=== PATIENT | male | born 1950 | race Caucasian/White ===

== ENCOUNTER 2017-05-28 07:12 | Day surgery (SDC) | payer MEDICARE, OTHER ==
[~2017-05-28] VITALS: Ht 185.4 cm; Wt 85.5 kg
[2017-05-28] VITALS (20 sets, daily range): BP systolic 139–192; BP diastolic 77–99
[~2017-05-28 07:12] MED LIST: ACHD5005 PO; ALBU2.5V4 IN; AMIN30LI25 JT; ASPI-983 PO; ASPI-999 PO; HYDR-753 PO; HYDR-757 PO; LANS15CA3 JT; LEVO500T69 JT; LISI10TA2 PO; LORA0.5T PO; LORA0.5T34 GT; LORA2ORA2 JT; LOSA1TAB23 PO; METO-352 PO; MTP50T JT; NAPR-1033 PO; OMEP20CA12 PO; OMEP2SUS JT; OXYC5SOL13 JT; POT473SP TP; PRAV40TA PO; SENNA JT; SIMV10TA3 PO; TIOT18CA IH; VENL150T PO; WATER FLUSH JT; [UNRECOGNIZED DRUG - CODE] JT; [UNRECOGNIZED DRUG - CODE] JT
--- OUTSIDE RECORDS SUMMARY | 2017-05-28 07:15 | XMS REPORT | Continuity of Care Document ---
Author Author [employer] Organization [facility] Address Unknown Phone Unavailable Care Team Providers Care Interface Control Officer Name Role Phone [employer] Unavailable Unavailable Problems Medications Allergies, Adverse Reactions, Alerts Immunizations Results Vital Signs Encounters Procedures Plan of Care Social History Assessment and Plan Family History Value Date Source Advance Directives Order Name Results Value Date Source
--- OUTSIDE RECORDS SUMMARY | 2017-05-28 07:16 | XMS REPORT | Continuity of Care Document ---
Author Author [facility] Organization [facility] Address Unknown Phone Unavailable Allergies Active Description Code Type Severity Reaction Onset Reported/Identified Relationship to Patient Clinical Status Yes meperidine [id number] Drug Allergy Unknown N/A 12/30/2006 Medications There is no data. Problems Date Dx Coded Attending Type Code Diagnosis Diagnosed By 09/18/2013 MILLER ANTHONY MD Ot 211.3 BENIGN NEOPLASM LG BOWEL 09/18/2013 MILLER ANTHONY MD Ot 305.1 TOBACCO USE DISORDER 09/18/2013 MILLER ANTHONY MD Ot 530.10 ESOPHAGITIS NOS 09/18/2013 MILLER ANTHONY MD Ot 553.3 DIAPHRAGMATIC HERNIA 09/18/2013 MILLER ANTHONY MD Ot 600.00 HYPERTROPHY (BENIGN) OF PROSTATE W/O URI 09/18/2013 MILLER ANTHONY MD Ot V76.51 SCREEN MAL NEOP-COLON 02/27/2014 MILLER ANTHONY MD Ot 038.9 SEPTICEMIA NOS 02/27/2014 MILLER ANTHONY MD Ot 293.0 DELIRIUM DUE TO CONDITIONS CLASSIFIED EL 02/27/2014 MILLER ANTHONY MD Ot 305.1 TOBACCO USE DISORDER 02/27/2014 MILLER ANTHONY MD Ot 427.31 ATRIAL FIBRILLATION 02/27/2014 MILLER ANTHONY MD Ot 496 CHR AIRWAY OBSTRUCT NEC 02/27/2014 MILLER ANTHONY MD Ot 510.9 EMPYEMA W/O FISTULA 02/27/2014 MILLER ANTHONY MD Ot 693.0 DRUG DERMATITIS NOS 02/27/2014 MILLER ANHTONY MD Ot 995.91 SEPSIS 02/27/2014 MILLER ANTHONY MD Ot E942.0 ADV EFF CARD RHYTH REGUL 02/27/2014 MILLER ANTHONY MD Ot V10.03 HX-ESOPHAGEAL MALIGNANCY 02/27/2014 MILLER ANTHONY MD Ot V10.11 HX-BRONCHOGENIC MALIGNAN 05/11/2015 MILLER ANTHONY MD Ot C34.31 05/11/2015 MILLER ANTHONY MD, Ot Z08 05/11/2015 MILLER ANTHONY MD Ot Z90.2 12/19/2015 MILLER ANTHONY MD Ot R63.4 ABNORMAL WEIGHT LOSS 12/19/2015 MILLER ANTHONY MD Ot Z85.01 PERSONAL HISTORY OF MALIGNANT NEOPLASM O 12/19/2015 MILLER ANTHONY MD Ot R63.4 ABNORMAL WEIGHT LOSS 12/19/2015 MILLER ANTHONY MD Ot Z85.01 PERSONAL HISTORY OF MALIGNANT NEOPLASM O 12/21/2015 MILLER ANTHONY MD Ot R63.4 ABNORMAL WEIGHT LOSS 12/21/2015 MILLER ANTHONY MD Ot Z85.01 PERSONAL HISTORY OF MALIGNANT NEOPLASM O 12/27/2015 VIVIANE ROEC, ALI FACP CCDS Ot I10 ESSENTIAL (PRIMARY) HYPERTENSION 12/27/2015 VIVIANE ROEC, ALI FACP CCDS Ot I49.5 SICK SINUS SYNDROME 12/27/2015 VIVIANE ROEC, ALI FACP CCDS Ot R06.02 SHORTNESS OF BREATH 12/27/2015 VIVIANE JOHN FACC, ALI FACP CCDS Ot Z85.01 PERSONAL HISTORY OF MALIGNANT NEOPLASM O 12/27/2015 VIVIANE ROEC, ALI FACP CCDS Ot I10 ESSENTIAL (PRIMARY) HYPERTENSION 12/27/2015 VIVIANE ROEC, ALI FACP CCDS Ot I49.5 SICK SINUS SYNDROME 12/27/2015 VIVIANE JOHN FACC, ALI FACP CCDS Ot R06.02 SHORTNESS OF BREATH 12/27/2015 VIVIANE ROEC, ALI FACP CCDS Ot Z85.01 PERSONAL HISTORY OF MALIGNANT NEOPLASM O 12/28/2015 VIVIANE JOHN FACC, ALI FACP CCDS Ot I10 ESSENTIAL (PRIMARY) HYPERTENSION 12/28/2015 VIVIANE JOHN FACC, ALI FACP CCDS Ot I49.5 SICK SINUS SYNDROME 12/28/2015 VIVIANE ROEC, ALI FACP CCDS Ot R06.02 SHORTNESS OF BREATH 12/28/2015 VIVIANE JOHN FACC, ALI FACP CCDS Ot Z85.01 PERSONAL HISTORY OF MALIGNANT NEOPLASM O 12/30/2015 VVIIANE JOHN FACC, ALI FACP CCDS Ot I10 ESSENTIAL (PRIMARY) HYPERTENSION 12/30/2015 VIVIANE ROEC, ALI FACP CCDS Ot I49.5 SICK SINUS SYNDROME 12/30/2015 VIVIANE JOHN FACC, ALI FACP CCDS Ot R06.02 SHORTNESS OF BREATH 12/30/2015 VIVIANE JOHN FAC, ALI FACP CCDS Ot Z85.01 PERSONAL HISTORY OF MALIGNANT NEOPLASM O 01/06/2016 MILLER ANTHONY MD Ot R63.4 ABNORMAL WEIGHT LOSS 01/06/2016 MILLER ANTHONY MD Ot Z85.01 PERSONAL HISTORY OF MALIGNANT NEOPLASM O 01/11/2016 VIVIANE JOHN FAC, ALI FACP CCDS Ot I10 ESSENTIAL (PRIMARY) HYPERTENSION 01/11/2016 VIVIANE JOHN FAC, ALI FACP CCDS Ot I49.5 SICK SINUS SYNDROME 01/11/2016 VIVIANE JOHN FACC, ALI FACP CCDS Ot R06.02 SHORTNESS OF BREATH 01/11/2016 VIVIANE JOHN FAC, ALI FACP CCDS Ot Z85.01 PERSONAL HISTORY OF MALIGNANT NEOPLASM O 01/20/2016 VIVIANE JOHN FACC, ALI FACP CCDS Ot I10 ESSENTIAL (PRIMARY) HYPERTENSION 01/20/2016 VIVIANE JOHN FAC, ALI FACP CCDS Ot I49.5 SICK SINUS SYNDROME 01/20/2016 VIVIANE [facility], ALI FACP CCDS Ot R06.02 SHORTNESS OF BREATH 01/20/2016 VIVIANE JOHN FAC, ALI FACP CCDS Ot Z85.01 PERSONAL HISTORY OF MALIGNANT NEOPLASM O 01/25/2016 Ot 682.5 01/25/2016 Ot 721.3 01/25/2016 Ot 305.1 TOBACCO USE DISORDER 01/25/2016 Ot 786.52 PAINFUL RESPIRATION 01/25/2016 Ot 780.4 DIZZINESS AND GIDDINESS 01/25/2016 Ot 780.8 GENERALIZED HYPERHIDROSIS 01/25/2016 Ot 786.09 RESPIRATORY ABNORM NEC 01/25/2016 Ot 787.02 NAUSEA ALONE 01/25/2016 Ot 780.2 SYNCOPE AND COLLAPSE 01/25/2016 Ot 780.2 SYNCOPE AND COLLAPSE 01/25/2016 Ot 305.1 TOBACCO USE DISORDER 01/25/2016 Ot 786.30 HEMOPTYSIS, UNSPECIFIED 01/25/2016 Ot 786.05 SHORTNESS OF BREATH 01/25/2016 Ot 786.05 SHORTNESS OF BREATH 01/25/2016 Ot 682.3 CELLULITIS OF ARM 01/25/2016 MILLER ANTHONY MD Ot V72.84 EXAM PRE-OPERATIVE NOS 01/25/2016 MILLER ANTHONY MD Ot 150.9 MAL JUDI ESOPHAGUS NOS 01/25/2016 RAJ JOHN, MILLER Cruz Ot 162.9 MAL JUDI BRONCH/LUNG NOS 01/25/2016 MILLER ANTHONY MD Ot 150.9 MAL JUDI ESOPHAGUS NOS 01/25/2016 MILLER ANTHONY MD Ot 162.9 MAL JUDI BRONCH/LUNG NOS 01/25/2016 MILLER ANTHONY MD Ot 285.9 ANEMIA NOS 01/25/2016 RAJ JOHN, MILLER Cruz Ot 486 PNEUMONIA, ORGANISM NOS 01/25/2016 MILLER ANTHONY MD Ot C34.31 MALIGNANT NEOPLASM OF LOWER LOBE, RIGHT 01/25/2016 MILLER ANTHONY MD Ot Z08 ENCNTR FOR FOLLOW-UP EXAM AFTER TRTMT FO 01/25/2016 MILLER ANTHONY MD Ot Z90.2 ACQUIRED ABSENCE OF LUNG [PART OF] 01/25/2016 VIVIANE JOHN FACC, ALI FACP CCDS Ot I10 ESSENTIAL (PRIMARY) HYPERTENSION 01/25/2016 VIVIANE ROEC, ALI FACP CCDS Ot I49.5 SICK SINUS SYNDROME 01/25/2016 VIVIANE JOHN FACC, ALI FACP CCDS Ot R06.02 SHORTNESS OF BREATH 01/25/2016 VIVIANE JOHN FACC, ALI FACP CCDS Ot Z85.01 PERSONAL HISTORY OF MALIGNANT NEOPLASM O 01/25/2016 VIVIANE ROEC, ALI FACP CCDS Ot I10 ESSENTIAL (PRIMARY) HYPERTENSION 01/25/2016 VIVIANE ROEC, ALI FACP CCDS Ot I49.5 SICK SINUS SYNDROME 01/25/2016 VIVIANE ROEC, ALI FACP CCDS Ot R06.02 SHORTNESS OF BREATH 01/25/2016 VIVIANE ROEC, ALI FACP CCDS Ot Z85.01 PERSONAL HISTORY OF MALIGNANT NEOPLASM O 01/25/2016 MILLER ANTHONY MD Ot R63.4 ABNORMAL WEIGHT LOSS 01/25/2016 MILLER ANTHONY MD Ot Z85.01 PERSONAL HISTORY OF MALIGNANT NEOPLASM O 01/31/2016 VIVIANE ROEC, ALI FACP CCDS Ot I10 ESSENTIAL (PRIMARY) HYPERTENSION 01/31/2016 VIVIANE ROEC, ALI FACP CCDS Ot I25.10 ATHSCL HEART DISEASE OF [place] CORONARY 01/31/2016 VIVIANE JOHN FACC, ALI FACP CCDS Ot I42.0 DILATED CARDIOMYOPATHY 01/31/2016 VIVIANE ROE, ALI FACP CCDS Ot K21.9 GASTRO-ESOPHAGEAL REFLUX DISEASE WITHOUT 01/31/2016 VIVIANE JOHN FACC, ALI FACP CCDS Ot R00.1 BRADYCARDIA, UNSPECIFIED 01/31/2016 VIVIANE JOHN FACC, ALI FACP CCDS Ot Z72.0 TOBACCO USE 01/31/2016 VIVIANE JOHN FACC, ALI FACP CCDS Ot Z79.899 OTHER [facility] (CURRENT) DRUG THERAPY 01/31/2016 [facility], [facility]I FACP CCDS Ot Z90.2 ACQUIRED ABSENCE OF LUNG [PART OF] 01/31/2016 VIVIANE JOHN FACC, ALI FACP CCDS Ot Z95.0 PRESENCE OF CARDIAC PACEMAKER 02/07/2016 VIVIANE JOHN FACC, ALI FACP CCDS Ot I10 ESSENTIAL (PRIMARY) HYPERTENSION 02/07/2016 VIVIANE ROEC, ALI FACP CCDS Ot I25.10 ATHSCL HEART DISEASE OF [place] CORONARY 02/07/2016 VIVIANE [facility], ALI FACP CCDS Ot I42.0 DILATED CARDIOMYOPATHY 02/07/2016 VIVIANE [facility], ALI FACP CCDS Ot K21.9 GASTRO-ESOPHAGEAL REFLUX DISEASE WITHOUT 02/07/2016 VIVIANE [facility], ALI FACP CCDS Ot R00.1 BRADYCARDIA, UNSPECIFIED 02/07/2016 VIVIANE ROE, ALI FACP CCDS Ot Z72.0 TOBACCO USE 02/07/2016 VIVIANE ROE, ALI FACP CCDS Ot Z79.899 OTHER ARCHITECT MARINE (CURRENT) DRUG THERAPY 02/07/2016 VIVIANE ROE, ALI FACP CCDS Ot Z90.2 ACQUIRED ABSENCE OF LUNG [PART OF] 02/07/2016 VIVIANE ROE, ALI FACP CCDS Ot Z95.0 PRESENCE OF CARDIAC PACEMAKER 02/08/2016 MILLER ANTHONY MD Ot C34.31 MALIGNANT NEOPLASM OF LOWER LOBE, RIGHT 02/08/2016 MILLER ANTHONY MD Ot Z08 ENCNTR FOR FOLLOW-UP EXAM AFTER TRTMT FO 02/08/2016 MILLER ANTHONY MD Ot Z90.2 ACQUIRED ABSENCE OF LUNG [PART OF] 02/08/2016 VIVIANE JOHN FACC, ALI FACP CCDS Ot I10 ESSENTIAL (PRIMARY) HYPERTENSION 02/08/2016 VIVIANE JOHN FACC, ALI FACP CCDS Ot I49.5 SICK SINUS SYNDROME 02/08/2016 VIVIANE JOHN FAC, ALI FACP CCDS Ot R06.02 SHORTNESS OF BREATH 02/08/2016 VIVIANE [facility], ALI FACP CCDS Ot Z85.01 PERSONAL HISTORY OF MALIGNANT NEOPLASM O 02/08/2016 VIVIANE JOHN FAC, ALI FACP CCDS Ot I10 ESSENTIAL (PRIMARY) HYPERTENSION 02/08/2016 VIVIANE JOHN FAC, ALI FACP CCDS Ot I49.5 SICK SINUS SYNDROME 02/08/2016 VIVIANE [facility], ALI FACP CCDS Ot R06.02 SHORTNESS OF BREATH 02/08/2016 VIVIANE JOHN FAC, ALI FACP CCDS Ot Z85.01 PERSONAL HISTORY OF MALIGNANT NEOPLASM O 02/08/2016 RAJ JOHN, MILLER Cruz Ot R63.4 ABNORMAL WEIGHT LOSS 02/08/2016 MILLER ANTHONY MD Ot Z85.01 PERSONAL HISTORY OF MALIGNANT NEOPLASM O 05/27/2017 RAJ JOHN, MILLER Cruz Ot V72.84 EXAM PRE-OPERATIVE NOS 05/27/2017 RAJ JOHN, MILLER Cruz Ot 150.9 MAL JUDI ESOPHAGUS NOS 05/27/2017 MILLER ANTHONY MD Ot 162.9 MAL JUDI BRONCH/LUNG NOS 05/27/2017 MILLER ANTHONY MD Ot 150.9 MAL JUDI ESOPHAGUS NOS 05/27/2017 MILLER ANTHONY MD Ot 162.9 MAL JUDI BRONCH/LUNG NOS 05/27/2017 MILLER ANTHONY MD Ot 285.9 ANEMIA NOS 05/27/2017 MILLER ANTHONY MD Ot 486 PNEUMONIA, ORGANISM NOS Procedures There is no data. Results Test Result Range Automated blood complete blood count (hemogram) panel - 01/31/16 11:16 Blood leukocytes automated count (number/volume) 7.0 10*3/uL 4.3-11.0 Blood erythrocytes automated count (number/volume) 4.83 10*6/uL 4.35-5.85 Venous blood hemoglobin measurement (mass/volume) 15.2 g/dL 13.3-17.7 Blood hematocrit (volume fraction) 44 % 40-54 Automated erythrocyte mean corpuscular volume 92 [foz_us] 80-99 Automated erythrocyte mean corpuscular hemoglobin (mass per erythrocyte) 32 pg 25-34 Automated erythrocyte mean corpuscular hemoglobin concentration measurement ( mass/volume) 34 g/dL 32-36 Automated erythrocyte distribution width ratio 14.7 % 10.0-14.5 Automated blood platelet count (count/volume) 253 10*3/uL 130-400 Automated blood platelet mean volume measurement 10.8 [foz_us] 7.4-10.4 PT panel in platelet poor plasma by coagulation assay - 01/31/16 11:16 Prothrombin time (PT) in platelet poor plasma by coagulation assay 12.6 s 12.2-14.7 INR in platelet poor plasma or blood by coagulation assay 1.0 0.8-1.4 Activated partial thromboplastin time (aPTT) in platelet poor plasma bycoagulation assay - 01/31/16 11:16 Activated partial thromboplastin time (aPTT) in platelet poor plasma bycoagulation assay 25 s 24-35 Comprehensive metabolic panel - 01/31/16 11:16 Serum or plasma sodium measurement (moles/volume) 138 mmol/L 135-145 Serum or plasma potassium measurement (moles/volume) 4.0 mmol/L 3.6-5.0 Serum or plasma chloride measurement (moles/volume) 103 mmol/L 98-107 Carbon dioxide 28 mmol/L 21-32 Serum or plasma anion gap determination (moles/volume) 7 mmol/L 5-14 Serum or plasma urea nitrogen measurement (mass/volume) 10 mg/dL 7-18 Serum or plasma creatinine measurement (mass/volume) 0.74 mg/dL 0.60-1.30 Serum or plasma urea nitrogen/creatinine mass ratio 14 NRG Serum or plasma creatinine measurement with calculation of estimated glomerular filtration rate > NRG Serum or plasma glucose measurement (mass/volume) 92 mg/dL 70-105 Serum or plasma calcium measurement (mass/volume) 9.4 mg/dL 8.5-10.1 Serum or plasma total bilirubin measurement (mass/volume) 0.5 mg/dL 0.1-1.0 Serum or plasma alkaline phosphatase measurement (enzymatic activity/volume) 109 U/L 40-136 Serum or plasma aspartate aminotransferase measurement (enzymatic activity/ volume) 15 U/L 5-34 Serum or plasma alanine aminotransferase measurement (enzymatic activity/volume ) 14 U/L 0-55 Serum or plasma protein measurement (mass/volume) 6.9 g/dL 6.4-8.2 Serum or plasma albumin measurement (mass/volume) 3.9 g/dL 3.2-4.5 Lipid 1996 panel - 01/31/16 11:16 Serum or plasma triglyceride measurement (mass/volume) 144 mg/dL <150 Serum or plasma cholesterol measurement (mass/volume) 206 mg/dL < 200 Serum or plasma cholesterol in HDL measurement (mass/volume) 41 mg/ dL 40-60 Cholesterol in LDL [mass/volume] in serum or plasma by direct assay 152 mg/dL 1-129 Serum or plasma cholesterol in VLDL measurement (mass/volume) 29 mg/ dL 5-40 Methicillin resistant Staphylococcus aureus (MRSA) screening culture - 11:16 Methicillin resistant Staphylococcus aureus (MRSA) screening culture NEG NRG Encounters ACCT No. Visit Date/Time Discharge Status Pt. Type Provider Facility Loc./Unit Complaint [id number] 01/31/2016 10:16:00 01/31/2016 19:10:00 [facility] Outpatient VIVIANE JOHN FACC, MARRY RDZ CCDS [facility] CATH DILATED CARDIOMYPATHY,HTN,SOB,ANGINA [id number] 12/29/2015 07:29:00 12/29/2015 23:59:59 CLS Outpatient VIVIANE JHON FACC, MARRY RDZ CCDS [facility] CARD SOB; HISTORY OF ESOPHAGEAL CANCER; HTN;SICK SINUS [id number] 12/26/2015 13:45:00 12/26/2015 23:59:59 CLS Outpatient VIVIANE JOHN FACC, MARRY RDZ CCDS [facility] CARD SOB; HISTORY OF ESOPHAGEAL CANCER, HTN;SICK SINUS [id number] 12/13/2015 13:53:00 12/13/2015 23:59:59 CLS Outpatient MILLER ANTHONY MD [facility] RAD HX OF ESOPHAGEAL CA, WEIGHT LOSS [id number] 04/20/2015 08:04:00 04/20/2015 23:59:59 CLS Outpatient MILLER ANTHONY MD [facility] RAD FOLLOW UP RIGHT LOWER LOBECTOMY LUNG CANCER [id number] 03/15/2014 12:30:00 03/15/2014 23:59:59 CLS Outpatient MILLER ANTHONY MD [facility] HH ANEMIA,CA OF LUNG, PNEUMONIA,ESOPHAGEAL CA [id number] 02/26/2014 18:17:00 02/27/2014 14:20:00 DIS Inpatient MILLER ANTHONY MD [facility] CSD RECENT THORACIC SURGERY/ HYPOXIA/PULMONARY EDEMA [id number] 02/24/2014 11:49:00 02/24/2014 23:59:59 CLS Outpatient MILLER ANTHONY MD [facility] HH LUNG AND ESPOHAGEAL CA [id number] 09/18/2013 07:29:00 09/18/2013 10:25:00 DIS Outpatient MILLER ANTHONY MD [facility] SDC DYSPHAGIA; SCREENING [id number] 09/17/2013 07:16:00 09/17/2013 23:59:59 CLS Outpatient MILLER ANTHONY MD [facility] PREOP DYSPHASIA; SCREENING [id number] 05/28/2017 07:12:00 ACT Outpatient VIVIANE JOHN FACC, MARRY FACP CCDS [facility] CATH CAD,DILATED CM [id number] 01/25/2016 09:10:00 Document Registration [id number] 01/25/2016 09:10:00 Document Registration [id number] 01/25/2016 09:10:00 Document Registration [id number] 02/28/2011 10:24:00 Document Registration [id number] 09/14/2010 09:46:00 Document Registration [id number] 08/02/2010 14:20:00 Document Registration [id number] 07/06/2010 15:51:00 Document Registration [id number] 03/03/2010 10:23:00 Document Registration [id number] 03/01/2010 13:06:00 Document Registration [id number] 02/21/2010 11:25:00 Document Registration [id number] 01/19/2010 11:40:00 Document Registration [id number] 02/15/2009 11:56:00 Document Registration [id number] 03/25/2007 10:58:00 Document Registration
--- OUTSIDE RECORDS SUMMARY | 2017-05-28 07:16 | XMS REPORT | Clinical Summary ---
Author Author [facility] Organization [facility] Address Unknown Phone Unavailable Care Team Providers Care Real Estate Recruiter Name Role Phone PCP Unavailable Source Comments Some departments are not documenting in the electronic medical record. If you do not see the information that you expected, contact Release of Information in the Health Information Management department at [phone] for further assistance in locating additional records.[facility] Allergies Active Allergy Reactions Severity Noted Date Comments Amiodarone RASH 02/24/2014 Current Medications Prescription Sig. Disp. Refills Start End Date Status Date tiotropium (SPIRIVA) 18 Inhale 1 Cap by mouth 90 Cap 3 02/23/20 Active mcg capsule for daily. 14 inhalerIndications: Esophageal cancer (HCC), HTN (hypertension), HLD (hyperlipidemia), Tobacco abuse, Lung cancer (HCC), Atrial fibrillation (HCC), Pneumothorax after biopsy lansoprazole Take 30 mg by mouth as 600 mL 0 02/23/20 Active (FIRST-LANSOPRAZOLE) 3 directed. Take 30 mg (10 14 mg/mL susr suspension mL) daily per J tube. albuterol 0.5% Inhale 2.5 mg solution as Active (PROVENTIL; VENTOLIN) 2.5 directed every 4 hours as mg/0.5 mL nebu nebulizer needed. solution polyethylene glycol 3350 Take 17 g by mouth daily. 3 Bottle 0 03/09/ 20 Active (MIRALAX) 17 gram/dose 14 powder oxyCODONE (ROXICODONE) 1 5-10 mL every 4 hours as 250 mL 0 09/30/20 Active mg/mL oral needed 14 solutionIndications: Esophageal cancer (HCC), HTN (hypertension), HLD (hyperlipidemia), Tobacco abuse, Lung cancer (HCC), Atrial fibrillation (HCC), Pneumothorax after biopsy ALPRAZolam (XANAX) 0.25 Take 0.25 mg by mouth as Active mg tablet Needed. MELATONIN PO Take 1 Tab by mouth as Active Needed. HYDROcodone/acetaminophen Take 1-2 Tabs by mouth Active (NORCO; VICODIN) 5-325 mg every 4 hours as needed. tablet Active Problems Problem Noted Date Esophageal stricture 05/14/2014 Dysphagia 04/20/2014 Aspiration pneumonia (HCC) 03/09/2014 Pulmonary infection 02/28/2014 Atrial fibrillation (HCC) 02/19/2014 Lung cancer (HCC) 02/05/2014 Pneumothorax after biopsy 01/12/2014 HTN (hypertension) HLD (hyperlipidemia) Esophageal cancer (HCC) Tobacco abuse Immunizations Name Dates Previously Given Next Due Pneumococcal Vaccine 01/13/2014 (23-Arabella Adult) Family History Medical History Relation Name Comments Cancer-Prostate Father Cancer-Breast Mother Cancer-Lung Sister Relation Name Status Comments Father Brain Cancer (Age 76) Mother Breast Cancer (Age 74) Sister Social History Tobacco Use Types Packs/Day Years Used Date Former Smoker Cigarettes 1 42 Quit: 12/15/2013 Smokeless Tobacco: Never Used Alcohol Use Drinks/Week oz/Week Comments Yes 2 Cans of 1.2 5 per month beer Sex Assigned at Date Recorded Not on file Last Filed Vital Signs Vital Sign Reading Time Taken Blood Pressure 154/109 05/14/2014 9:00 AM PROCESS CONTROL OPERATOR Pulse 69 05/14/2014 9:00 AM PROCESS CONTROL OPERATOR Temperature 36.4 C (97.5 F) 05/14/2014 7:58 AM PROCESS CONTROL OPERATOR Respiratory Rate - - Oxygen Saturation 97% 05/14/2014 9:00 AM PROCESS CONTROL OPERATOR Inhaled Oxygen - - Concentration Weight 108.5 kg (239 lb 3.2 oz) 05/14/2014 6:15 AM PROCESS CONTROL OPERATOR Height 185.4 cm (6' 1") 05/14/2014 6:15 AM PROCESS CONTROL OPERATOR Body Mass Index 31.56 05/14/2014 6:15 AM PROCESS CONTROL OPERATOR Plan of Treatment Health Maintenance Due Date Last Done Comments HEPATITIS C SCREENING 1949 PHYSICAL (COMPREHENSIVE) 1956 EXAM PERTUSSIS VACCINE 1960 TETANUS VACCINE 1966 COLORECTAL CANCER 10/18/1999 SCREENING SHINGLES VACCINE 2009 ABDOMINAL AORTIC ANEURYSM 2014 SCREENING PREVNAR/PNEUMOVAX (#1) 2014 01/13/2014 INFLUENZA VACCINE 01/08/2017 Results Not on filefrom Last 3 Months
[2017-05-28] MEDS ORDERED: HEParin (CATH LAB) 2,000 ML IV ONE (07:17)
[2017-05-28] MEDS ORDERED: LIDOCAINE 1% INJ 50 ML (XYLOCAINE) VIAL ONE (07:17)
[2017-05-28] MEDS: NS IV 1000 ML 1,000 ML IV SCH ×2 (07:42→17:30)
[2017-05-28 07:45] LABS: MEAN PLATELET VOLUME 10.4 FL (7.4-10.4); RED BLOOD COUNT 4.3 10^6/uL (4.35-5.85); WHITE BLOOD COUNT 8.7 10^3/uL (4.3-11.0)
[2017-05-28 07:55] LABS: INR 0.9 (0.8-1.4); PROTHROMBIN TIME PATIENT 12.4 SEC (12.2-14.7)
[2017-05-28 08:05] LABS: ALANINE AMINOTRANSFERASE 12 U/L (0-55); ALBUMIN 3.7 GM/DL (3.2-4.5); ANION GAP 8 MMOL/L (5-14); ASPARTATE AMINO TRANSFERASE 13 U/L (5-34); BILIRUBIN,TOTAL 0.3 MG/DL (0.1-1.0); BLOOD UREA NITROGEN 15 MG/DL (7-18); BUN/CREATININE RATIO 18; CALCIUM 9.4 MG/DL (8.5-10.1); CARBON DIOXIDE 27 MMOL/L (21-32); CHLORIDE 105 MMOL/L (98-107); CHOLESTEROL 175 MG/DL (< 200); CREATININE SERUM 0.84 MG/DL (0.60-1.30); DIRECT LDL 114 MG/DL (1-129); GFR ESTIMATED > 60; GLUCOSE 91 MG/DL (70-105); SODIUM 140 MMOL/L (135-145); TOTAL PROTEIN 7.3 GM/DL (6.4-8.2); TRIGLYCERIDES 141 MG/DL (<150); VLDL CHOLESTEROL 28 MG/DL (5-40)
[2017-05-28] MEDS ORDERED: MIDAZOLAM 5 MG/5 ML (VERSED) VIAL ONE (08:12)
[2017-05-28] MEDS ORDERED: fentaNYL INJECTION 100 MCG/2 ML AMP ONE (08:12)
[2017-05-28] MEDS ORDERED: diphenhydrAMINE 50 MG/ML INJ (BENADRYL) ONE (08:13)
[2017-05-28] MEDS ORDERED: VENL150C PO (08:21)
[2017-05-28] MEDS ORDERED: ASPI-983 PO (08:21)
[2017-05-28] MEDS ORDERED: METO200T4 PO (08:21)
[2017-05-28] MEDS ORDERED: PRAV40TA2 PO (08:21)
[2017-05-28] MEDS ORDERED: APIX5TAB PO (08:21)
[2017-05-28] MEDS ORDERED: LISI10TA2 PO (08:21)
[2017-05-28] MEDS ORDERED: NITROGLYCERIN DRIP 25 MG/D5W 250 ML IV ONE (09:14)
[2017-05-28] MEDS ORDERED: HEParin 1000 UNIT/ML (10ML VIAL) FOR BOLUS ONE (09:14)
[2017-05-28] MEDS ORDERED: EPTIFIBATIDE BOLUS 20 ML IV ONE (09:15)
[2017-05-28] MEDS ORDERED: meTOprolol 5 MG/5 ML (LOPRESSOR) VIAL ONE (10:02)
[2017-05-28] MEDS ORDERED: ASPIRIN 81 MG CHEW (CHILDREN'S ASA) ONE (10:24)
[2017-05-28] MEDS ORDERED: CLOPIDOGREL 300 MG (PLAVIX) TABLET PO ONE (10:24)
[2017-05-28] MEDS ORDERED: NS IV 1000 ML 1,000 ML IV SCH (10:50)
--- NOTE | 2017-05-28 10:50 | Cardiac Procedure Note-CS/ASA ---
Pre-Procedure Note Pre-Op Procedure Note H&P Reviewed The H&P was reviewed, patient examined and no changes noted. Date H&P Reviewed: May 28, 2017 Time H&P Reviewed: 09:00 Conscious Sedation Pre-Proced Time Reviewed: 09:00 ASA Class: 3 Airway Mallampati Classification: ([place] appropriate class) I. II. III, IV Lungs Heart ASA score ASA 1: a normal healthy patient ASA 2: a patient with a mild systemic disease (mid diabetes, controlled hypertension, obesity ASA 3: a patient with a severe systemic disease that limits activity (angina , COPD, prior Myocardial infarction) ASA 4: a patient with an incapacitating disease that is a constant threat to life (CHF, renal failure) ASA 5: a moribund patient not expected to survive 24 hrs. (ruptured aneurysm) ASA 6: a declared brain patient whose organs are being harvested. For emergent operations, add the letter E after the classification Grade 2 Sedation Plan: Analgesia, Amnesia, Plan communicated to team members, Discussed options with patient/fam, Discussed risks with patient/fam Note The patient is an appropriate candidate to undergo the planned procedure, sedation, and anesthesia. The patient immediately re-assessed prior to indication. MARRY PAN MD FACP FAC CCDS May 28, 2017 10:49
[2017-05-28] MEDS ORDERED: LORazepam 0.5 MG (ATIVAN) TABLET PO PRN ×2 (11:00→18:00)
[2017-05-28] MEDS ORDERED: PATIENT MAY USE OWN MEDS, ALL PO SCH (11:00)
[2017-05-28] MEDS ORDERED: ACETAMINOPHEN 325 MG TABLET/CAPLET (TYLENOL) PO PRN (11:00)
[2017-05-28] MEDS ORDERED: HYDROcodone/APAP 10 MG/325 MG (LORTAB) TAB PO PRN (11:00)
--- NOTE | 2017-05-28 13:29 | CARDIAC CATHETERIZATION ---
DATE OF SERVICE: 05/28/2017 CARDIAC CATHETERIZATION AND CORONARY INTERVENTION REPORT The patient is a 66-year-old man with multiple coronary artery disease risk factors, known moderate coronary artery disease (based on previous coronary evaluations) and recent documentation of brief runs of asymptomatic nonsustained ventricular tachycardia on pacemaker interrogation. He comes in today for cardiac catheterization for evaluation for obstructive coronary artery disease as the basis of his arrhythmia. Informed consent was obtained for cardiac catheterization and possible ad hoc coronary intervention. PROCEDURE: He was brought to the cardiac catheterization laboratory in a fasting state. Right groin was prepared and draped in the usual sterile fashion. A 1% Lidocaine was used for local anesthesia. Modified Seldinger technique was used to advance a 5-Chilean sheath in the right femoral artery. Angiography of the right femoral artery was carried out through the sheath. A 5-Chilean JL4 catheter was used for left coronary angiography. A 5-Chilean JR4 catheter was used for right coronary angiography. A 5-Chilean pigtail catheter was used for left heart catheterization, left ventricular angiography. The catheter was pulled back to the ascending aorta and then removed. All catheter exchanges were carried out over a wire because, (at initial angiography through the sheath). He was found to have an ulcerated plaque in the right external iliac artery (nonobstructive). PERCUTANEOUS INTERVENTION TO THE RIGHT CORONARY ARTERY: Following completion of the diagnostic procedure, we carried out percutaneous intervention to the proximal right coronary artery, which was exhibiting 80% stenosis. We exchanged the sheath over a wire for a 6-Chilean sheath. We used a 6-Chilean JR4 guide catheter with side holes. We gave 5000 units of intravenous heparin. We gave a double bolus of Integrilin and Integrilin infusion was continued throughout the procedure. We advanced a BMW wire across the lesion and the tip was placed in the distal vessel. We advanced an Alpine Xience 3.0 x 12 mm stent. This was carefully positioned to cover the entire lesion in the proximal right coronary artery. The stent was deployed to 20 atmospheres, achieving a final stent lumen size of 3.28 mm. Full stent expansion was achieved. Subsequent angiography revealed 0% residual stenosis at a previous site of 80% stenosis. Flow throughout the vessel is normal. The mid right coronary artery has moderate disease. The distal right coronary artery has diffuse moderately severe disease. These were not intervened on. FRACTIONAL FLOW RESERVE MEASUREMENT OF THE LEFT ANTERIOR DESCENDING ARTERY: Following completion of the intervention to the right coronary artery, we carried out fractional flow reserve measurement in the mid left anterior descending artery where the patient was noted to have a 50% stenosis with haziness. We used a six 6-Chilean JL4 guide catheter to engage the left coronary artery. We advanced a pressure wire across the lesion and the tip was placed in the distal vessel. We gave adenosine at 140 mcg per kilogram per minute for 2 minutes. Fractional flow reserve was measured at 0.84, indicating hemodynamic nonsignificance of this mid left anterior descending artery lesion. FRACTIONAL FLOW RESERVE MEASUREMENT IN THE LEFT CIRCUMFLEX ARTERY: Following completion of the fractional flow reserve measurement in the left anterior descending artery, we proceeded with fractional flow reserve measurement in the distal left circumflex artery where the patient had approximately 60% stenosis. We advanced a pressure wire across the lesion and the tip was placed in the distal vessel. We gave adenosine 140 mcg per kilogram per minute for 2 minutes. Fractional flow reserve was measured to 0.91, indicating hemodynamic nonsignificance. The equipment was removed and the sheath was removed and the site of sheath insertion secured with a Mynx. The patient tolerated the procedure well. HEMODYNAMICS: Left ventricular end-diastolic pressure following coronary angiography was 18 mmHg. There was no significant pressure gradient on pullback across the aortic valve. Ascending aortic pressure was 194/91 with a mean of 129 mmHg. LEFT VENTRICULAR ANGIOGRAPHY: Left ventricular angiography was carried out in the right anterior oblique projection. Global left ventricular systolic function is mildly impaired. There is anterolateral and apical hypokinesis, mild. Left ventricular ejection fraction is 45-50%. There does not appear to be significant mitral regurgitation. CORONARY ANGIOGRAPHY: Diffuse coronary calcification is present. Left main coronary artery does not have significant disease. Left anterior descending artery has 50% mid vessel stenosis with haziness. This is hemodynamically nonsignificant (fractional flow reserve 0.84). The first septal berry picker from the left anterior descending artery has a severe ostial lesion. This vessel is of a very small caliber and not amenable to intervention. The left circumflex artery has diffuse mild to moderate disease. The terminal posterolateral branch has approximately 60% stenosis at its ostium. This is hemodynamically nonsignificant (FFR 0.91). The right coronary artery is dominant and had 80% proximal stenosis to which successful stenting was carried out with Alpine Xience 3.0 x 12 mm stent deployed at 20 atmospheres. The right coronary artery has moderate to moderately severe disease where the vessel is of a generally small caliber. CONCLUSIONS: 1. Coronary artery disease as detailed above. This consists of moderate mid vessel disease in the left anterior descending artery and moderate distal disease in the left circumflex artery. The right coronary artery had 80% proximal stenosis to which successful stenting was carried out with Alpine Xience 3.0 mm x 12 mm stent. The distal left anterior descending artery has moderate to moderately severe disease where the vessel is of a generally small caliber. 2. Mild impairment of global left ventricular systolic function with an ejection fraction of 45-50%. 3. Anterolateral apical mild hypokinesis. 4. No significant mitral regurgitation. 5. Elevated left ventricular end diastolic pressure. DISCUSSION AND RECOMMENDATIONS: We have added clopidogrel to his regimen. This is to be continued. For now, we are continuing aspirin and Eliquis as well. In a couple of days, we will discontinue aspirin and continue with Eliquis and Plavix. After year of Plavix, we will switch Plavix out to aspirin and continue that indefinitely. Eliquis is to be continued indefinitely. Risk factor modification was reviewed. He is being hospitalized for observation after today's procedure. Job ID: [id number] DocumentID: [id number] Dictated Date: 05/28/2017 10:29:15 Tube Cutter Operator Date: 05/28/2017 13:28:20 Dictated By: MARRY PAN MD, MA, FACP, FACC, MTDD
[2017-05-28] MEDS ORDERED: lisINopril 10 MG (PRINIVIL) TAB PO ONE (15:15)
[2017-05-28] MEDS ORDERED: meTOprolol SUCCINATE 100 MG (TOPROL XL) TAB PO ONE (15:15)
[2017-05-28] MEDS ORDERED: PATIENT MAY USE OWN MEDS, ALL MC SCH (17:15)
[2017-05-28] MEDS ORDERED: oxyCODONE/APAP 5/325MG (PERCOCET 5) TABLET PO PRN (17:15)
[2017-05-28] MEDS ORDERED: amLODIPine 10 MG (NORVASC) TAB PO ONE (17:15)
[2017-05-28] MEDS: HYDROcodone/APAP 10 MG/325 MG (LORTAB) TAB PO PRN (18:30)
[2017-05-28] MEDS ORDERED: PRAVASTATIN 40 MG TABS PO SCH (21:00)
[2017-05-28] MEDS: APIXABAN 5 MG (ELIQUIS) TABLET PO SCH (21:30)
[2017-05-29] VITALS: BP 154/78
[2017-05-29] MEDS: NS IV 1000 ML 1,000 ML IV SCH (03:30)
[2017-05-29 04:00] VITALS: BP 147/86
[2017-05-29 05:04] LABS: MEAN PLATELET VOLUME 10.6 FL (7.4-10.4); RED BLOOD COUNT 4.09 10^6/uL (4.35-5.85); WHITE BLOOD COUNT 12.7 10^3/uL (4.3-11.0)
[2017-05-29 05:26] LABS: ANION GAP 10 MMOL/L (5-14); BLOOD UREA NITROGEN 15 MG/DL (7-18); BUN/CREATININE RATIO 20; CALCIUM 8.8 MG/DL (8.5-10.1); CARBON DIOXIDE 20 MMOL/L (21-32); CHLORIDE 106 MMOL/L (98-107); CREATININE SERUM 0.74 MG/DL (0.60-1.30); GFR ESTIMATED > 60; GLUCOSE 109 MG/DL (70-105); POTASSIUM 3.6 MMOL/L (3.6-5.0); SODIUM 136 MMOL/L (135-145)
[2017-05-29] MEDS ORDERED: VENLAFAXINE ER 150 MG CAPS PO SCH (07:00)
[2017-05-29] MEDS ORDERED: OMEPRAZOLE 20 MG (PriLOSEC) CAP PO SCH (07:00)
[2017-05-29] MEDS: HYDROcodone/APAP 10 MG/325 MG (LORTAB) TAB PO PRN (07:58)
[2017-05-29] MEDS: APIXABAN 5 MG (ELIQUIS) TABLET PO SCH (08:04)
--- NOTE | 2017-05-29 08:04 | Progress Note-Cardiology ---
Cardiology SOAP Progress Note Objective: I&O/Vital Signs Vital Sign - Last 12Hours 05/28/17 05/28/17 05/28/17 05/28/17 20:00 20:00 21:00 21:00 Temp 99.5 Pulse 60 61 B/P (MAP) 171/87 (115) 155/92 (113) Pulse Ox 96 96 97 97 O2 Delivery Room Air Room Air Room Air Room Air 05/28/17 05/28/17 05/29/17 05/29/17 22:00 23:00 00:00 00:16 Temp 98.8 Pulse 61 62 63 B/P (MAP) 149/77 (101) 161/82 (108) 154/78 (103) Pulse Ox 94 96 95 96 O2 Delivery Room Air Room Air Room Air Room Air 05/29/17 05/29/17 05/29/17 01:00 04:00 04:00 Temp 99.0 Pulse 60 60 B/P (MAP) 147/86 (106) Pulse Ox 95 96 O2 Delivery Room Air Room Air Intake and Output 05/29/17 00:00 Intake Total 890 ml Output Total 1350 ml Balance -460 ml Weight (Pounds): 188 Weight (Ounces): 0.0 Weight (Calculated Kilograms): 85.362535 Results/Procedures: Labs Laboratory Tests 05/29/17 04:45: White Blood Count 12.7H, Red Blood Count 4.09L, Hemoglobin 12.9L, Hematocrit 38L , Mean Corpuscular Volume 94, Mean Corpuscular Hemoglobin 32, Mean Corpuscular Hemoglobin Concent 34, Red Cell Distribution Width 13.0, Platelet Count 297, Mean Platelet Volume 10.6H, Sodium Level 136, Potassium Level 3.6, Chloride Level 106, Carbon Dioxide Level 20L, Anion Gap 10, Blood Urea Nitrogen 15, Creatinine 0.74, Estimat Glomerular Filtration Rate > 60, BUN/Creatinine Ratio 20, Glucose Level 109H, Calcium Level 8.8 Laboratory Tests 05/28/17 07:32 05/29/17 04:45 Procedures S/P cardiac cath with successful intervention on 05-28-17. Please refer to Dr. Baltazar's cardia cath report for details. A/P: Assessment: Coronary artery disease. Cardiac cath of 05-28-17: This consists of moderate mid vessel disease in the left anterior descending artery and moderate distal disease in the left circumflex artery. The right coronary artery had 80% proximal stenosis to which successful stenting was carried out with Alpine Xience 3.0 mm x 12 mm stent. The distal left anterior descending artery has moderate to moderately severe disease where the vessel is of a generally small caliber. Mild impairment of global left ventricular systolic function with an ejection fraction of 45-50%. Anterolateral apical mild hypokinesis. No significant mitral regurgitation. Elevated left ventricular end diastolic pressure. Brief NSVT, asymptomatic, on pacemaker interrogation of 05/22/17 Paroxysmal atrial flutter, based on pacemaker interrogation of 05/23/16 Stroke prophylaxis with Eliquis Exertional shortness of breath, likely multifactorial, likely due to chronic systolic CHF and COPD Chronic systolic CHF MPI of 12-29-15 showed mod cardiomegaly with global hypokinesis of LV and LVEF 44 %. No evidence of significant myocardial ischemia or infarction HEATH with segmental of July 2016by Dr. Saha: mildly abnormal HEATH Echocardiogram of December 26, 2015 showed global LV systolic function at the lower limit of normal with an ejection fraction of approx 50%. Mild aortic valve sclerosis and mitral annular calcification without evidence of significant valvular stenosis. Mild MR and TR. PASP could not be reliably estimated Carotid u/s of January 2016: mild to mod bilat carotid H/o esophageal cancer for which he has undergone esophagectomy and upper R pulmonary lobectomy in 2013 Hypertension - not well controlled Chronic tobacco use; continuing cigar use GERD, by history S/p permanent pacemaker placement for bradycardia (pt states he had 5-10 second pauses during sleep) at [facility] in 2013, functioning normally on interrogation of 05/22/17 Symptoms suggestive of prostate enlargement for which he follows with Dr Singh Plan: We have added clopidogrel to his regimen. This is to be continued. For now, we are continuing aspirin and Eliquis as well. In a couple of days, we will discontinue aspirin and continue with Eliquis and Plavix. After year of Plavix , we will switch Plavix out to aspirin and continue that indefinitely. Eliquis is to be continued indefinitely. THERESA LUIS May 29, 2017 08:04
[2017-05-29 08:07] VITALS: BP 153/78
[2017-05-29] MEDS ORDERED: CLOP75TA28 PO (08:59)
[2017-05-29] MEDS ORDERED: lisINopril 10 MG (PRINIVIL) TAB PO SCH (09:00)
[2017-05-29] MEDS ORDERED: ASPIRIN E.C. 81 MG (ECOTRIN) TAB PO SCH (09:00)
[2017-05-29] MEDS ORDERED: CLOPIDOGREL 75 MG (PLAVIX) TABLET PO SCH (09:00)
[2017-05-29] MEDS ORDERED: METOPROLOL SUCC PO SCH (09:00)
--- NOTE | 2017-05-29 09:00 | Discharge Inst-Cardiology ---
Discharge Inst-Cardiac Discharge Medications New Medications: Clopidogrel Bisulfate (Clopidogrel) 75 Mg Tablet 75 MG PO DAILY, #90 TAB 3 Refills Continued Medications: Apixaban (Eliquis) 5 Mg Tablet 5 MG PO BID, TAB Hydrocodone/Acetaminophen (Watkins 10-325 Tablet) 1 Each Tablet 1 TAB PO Q6H PRN for PAIN-MODERATE, TAB Lisinopril (Lisinopril) 10 Mg Tablet 10 MG PO DAILY, TAB Lorazepam (Lorazepam) 0.5 Mg Tablet 0.5 MG PO DAILY PRN for ANXIETY, TAB Metoprolol Succinate (Metoprolol Succinate) 200 Mg Tab.er.24h 200 MG PO DAILY, TAB Omeprazole (Omeprazole) 20 Mg Capsule.dr 20 MG PO DAILY, CAP Pravastatin Sodium (Pravastatin Sodium) 40 Mg Tablet 40 MG PO DAILY, TAB Venlafaxine HCl (Effexor Xr) 150 Mg Cap.er.24h 150 MG PO DAILY, CAP Discontinued Medications: Aspirin (Aspirin EC) 81 Mg Tablet.dr 81 MG PO DAILY, TAB New, Converted or Re-Newed RX: Transmitted to Pharmacy Orders-Post D/C & Referrals Pneu Vac Indicated: Yes THERESA LUIS May 29, 2017 09:00
[2017-05-29 09:43] VITALS: BP 153/78
--- NOTE | 2017-05-29 12:45 | Progress Note-Cardiology ---
Cardiology SOAP Progress Note Subjective: No cp or palp or syncope or groin discomfort or shortness of breath this morning Objective: I&O/Vital Signs Vital Sign - Last 12Hours 05/29/17 05/29/17 05/29/17 05/29/17 01:00 04:00 04:00 08:05 Temp 99.0 Pulse 60 60 B/P (MAP) 147/86 (106) Pulse Ox 95 96 O2 Delivery Room Air Room Air Room Air 05/29/17 05/29/17 05/29/17 08:05 08:07 09:43 Temp 99.6 Pulse 65 65 Resp 20 20 B/P (MAP) 153/78 (103) 153/78 Pulse Ox 97 97 O2 Delivery Room Air Room Air Room Air Intake and Output 05/29/17 00:00 Intake Total 890 ml Output Total 1350 ml Balance -460 ml Weight (Pounds): 188 Weight (Ounces): 8.0 Weight (Calculated Kilograms): 85.156074 Groin site without hematoma: Yes Bruising: mild bruising Constitutional: AAO x 3, well-developed, well-nourished Respiratory: accessory muscle use, lungs clear to auscultation Cardiovascular: regular rate-rhythm, S1 and S2, systolic murmur (2/6 MILADY at card base) Gastrointestional: No tender, soft, No guarding, No rebound, audible bowel sounds Extremities: No clubbing, No cyanosis, No significant edema Neurologic/Psychiatric: oriented x 3, grossly intact, power is 5/5 both on sides Skin: No rash on exposed areas, No ulcerations on exposed areas Results/Procedures: Labs Laboratory Tests 05/29/17 04:45: White Blood Count 12.7H, Red Blood Count 4.09L, Hemoglobin 12.9L, Hematocrit 38L , Mean Corpuscular Volume 94, Mean Corpuscular Hemoglobin 32, Mean Corpuscular Hemoglobin Concent 34, Red Cell Distribution Width 13.0, Platelet Count 297, Mean Platelet Volume 10.6H, Sodium Level 136, Potassium Level 3.6, Chloride Level 106, Carbon Dioxide Level 20L, Anion Gap 10, Blood Urea Nitrogen 15, Creatinine 0.74, Estimat Glomerular Filtration Rate > 60, BUN/Creatinine Ratio 20, Glucose Level 109H, Calcium Level 8.8 Microbiology 05/28/17 MRSA Screen - Final, Complete MRSA not isolated Laboratory Tests 05/28/17 07:32 05/29/17 04:45 A/P: Assessment: Coronary artery disease. Cardiac cath of 05-28-17 showed: moderate mid vessel disease in the left anterior descending artery and moderate distal disease in the left circumflex artery. The right coronary artery had 80% proximal stenosis to which successful stenting was carried out with Alpine Xience 3.0 mm x 12 mm stent. The distal left anterior descending artery has moderate to moderately severe disease where the vessel is of a generally small caliber. Mild impairment of global left ventricular systolic function with an ejection fraction of 45-50%. Anterolateral apical mild hypokinesis. No significant mitral regurgitation. Elevated left ventricular end diastolic pressure. Brief NSVT, asymptomatic, on pacemaker interrogation of 05/22/17 Paroxysmal atrial flutter, based on pacemaker interrogation of 05/23/16 Stroke prophylaxis with Eliquis Exertional shortness of breath, likely multifactorial, likely due to chronic systolic CHF and COPD Chronic systolic CHF MPI of 12-29-15 showed mod cardiomegaly with global hypokinesis of LV and LVEF 44 %. No evidence of significant myocardial ischemia or infarction HEATH with segmental of July 2016by Dr. Saha: mildly abnormal HEATH Echocardiogram of December 26, 2015 showed global LV systolic function at the lower limit of normal with an ejection fraction of approx 50%. Mild aortic valve sclerosis and mitral annular calcification without evidence of significant valvular stenosis. Mild MR and TR. PASP could not be reliably estimated Carotid u/s of January 2016: mild to mod bilat carotid H/o esophageal cancer for which he has undergone esophagectomy and upper R pulmonary lobectomy in 2013 Hypertension - not well controlled Chronic tobacco use; continuing cigar use GERD, by history S/p permanent pacemaker placement for bradycardia (pt states he had 5-10 second pauses during sleep) at [facility] in 2013, functioning normally on interrogation of 05/22/17 Symptoms suggestive of prostate enlargement for which he follows with Dr Singh Plan: I spoke with him in detail regarding his cath findings and interventions and studies undertaken I advised him of his med changes We have added clopidogrel to his regimen. This is to be continued. For now, we are continuing aspirin and Eliquis as well. In a couple of days, we will discontinue aspirin and continue with Eliquis and Plavix. After year of Plavix , we will switch Plavix out to aspirin and continue that indefinitely. Eliquis is to be continued indefinitely I answered his questions in detail Risk factor modification was reviewed in detail and we have advised close outpatient f/u for now MARRY APN MD FACP FAC CCDS May 29, 2017 12:45
--- NOTE | 2017-05-29 12:47 | Cardiology Discharge Summary ---
Diagnosis/Chief Complaint Date of Admission 05/28/17 Date of Discharge 05/29/17 Final/Discharge Diagnosis Coronary artery disease. Cardiac cath of 05-28-17 showed: moderate mid vessel disease in the left anterior descending artery and moderate distal disease in the left circumflex artery. The right coronary artery had 80% proximal stenosis to which successful stenting was carried out with Alpine Xience 3.0 mm x 12 mm stent. The distal left anterior descending artery has moderate to moderately severe disease where the vessel is of a generally small caliber. Mild impairment of global left ventricular systolic function with an ejection fraction of 45-50%. Anterolateral apical mild hypokinesis. No significant mitral regurgitation. Elevated left ventricular end diastolic pressure. Brief NSVT, asymptomatic, on pacemaker interrogation of 05/22/17 Paroxysmal atrial flutter, based on pacemaker interrogation of 05/23/16 Stroke prophylaxis with Eliquis Exertional shortness of breath, likely multifactorial, likely due to chronic systolic CHF and COPD Chronic systolic CHF MPI of 12-29-15 showed mod cardiomegaly with global hypokinesis of LV and LVEF 44 %. No evidence of significant myocardial ischemia or infarction HEATH with segmental of July 2016by Dr. Saha: mildly abnormal HEATH Echocardiogram of December 26, 2015 showed global LV systolic function at the lower limit of normal with an ejection fraction of approx 50%. Mild aortic valve sclerosis and mitral annular calcification without evidence of significant valvular stenosis. Mild MR and TR. PASP could not be reliably estimated Carotid u/s of January 2016: mild to mod bilat carotid H/o esophageal cancer for which he has undergone esophagectomy and upper R pulmonary lobectomy in 2013 Hypertension - not well controlled Chronic tobacco use; continuing cigar use GERD, by history S/p permanent pacemaker placement for bradycardia (pt states he had 5-10 second pauses during sleep) at [facility] in 2013, functioning normally on interrogation of 05/22/17 Symptoms suggestive of prostate enlargement for which he follows with Dr Singh Chief Complaint/HPI Chief Complaint/HPI Please refer to H&P for details of admission Please refer to card cath report and today's progress note for hosp course Discharge Summary Procedures Card cath and cor intervention on 05/28/17 Discussion & Recommendations Home Medications Reviewed patient Home Medication Reconciliation Form Discharge Home Medications: Reviewed and agree with Discharge Medication list on patient's Discharge Instruction sheet MARRY PAN MD FACP FACC CCDS May 29, 2017 12:47
== END 2017-05-29 09:43 | disposition home or self-care (01) ==
LOC: CATH 07:12 → ICU 10:40 → CATH 05-29 09:43
PROVIDERS: ATTEND Internal Medicine Cardiovascular Disease
DX: I25.10 Atherosclerotic heart disease of native coronary artery without angina pectoris (principal); I11.0 Hypertensive heart disease with heart failure; I50.22 Chronic systolic (congestive) heart failure; I42.0 Dilated cardiomyopathy; I48.92 Unspecified atrial flutter; I65.23 Occlusion and stenosis of bilateral carotid arteries; K21.9 Gastro-esophageal reflux disease without esophagitis; F17.210 Nicotine dependence, cigarettes, uncomplicated; Z95.810 Presence of automatic (implantable) cardiac defibrillator; Z79.01 Long term (current) use of anticoagulants; Z79.899 Other long term (current) drug therapy; Z79.82 Long term (current) use of aspirin; Z85.01 Personal history of malignant neoplasm of esophagus
CPT/HCPCS: 36415; 80048; 80053; 80061; 85027; 85610; 85730; 87081; 92928; 93005; 93458; 93571; 93572

== ENCOUNTER → 2017-07-30 | Outpatient (CLI) | payer MEDICARE, OTHER ==
[~2017-07-30] MED LIST changes: +APIX5TAB PO; +CLOP75TA28 PO; +METO200T48 PO; +PRAV40TA2 PO; +VENL150C PO
== END ==
LOC: CARD 10:28
PROVIDERS: ATTEND Nurse Practitioner Family
DX: I25.10 Atherosclerotic heart disease of native coronary artery without angina pectoris (principal); I10 Essential (primary) hypertension; I65.23 Occlusion and stenosis of bilateral carotid arteries; I25.5 Ischemic cardiomyopathy
CPT/HCPCS: 93306

== ENCOUNTER → 2017-09-26 | Outpatient (CLI) | payer MEDICARE, OTHER ==
[~2017-09-26] MED LIST changes: +CATHETER FLUSH 10 ML SYR IV PRN; +IOHEXOL 350 MG/ML 100 ML (OMNIPAQUE 350) VIAL IV ONE; +NS 250 ML (IVPB) BAG IV ONE
--- NOTE | 2017-09-26 13:27 | Diagnostic Imaging Report ---
PROCEDURE: CT chest with contrast only. TECHNIQUE: Multiple contiguous axial images were obtained through the chest after administration of intravenous contrast. INDICATION: Lung and esophageal carcinoma. Correlation is made with prior CT from 12/13/2015. FINDINGS: Left chest wall cardiac pacemaker remains in place. There are postsurgical changes of esophagectomy and gastric pull-through procedure. There also appeared to be postsurgical changes of right lower lobectomy with surgical clips in the right hilum. No axillary lymphadenopathy is seen. Small lymph nodes in the mediastinum appear stable. No pathologically enlarged nodes are seen. Michelle are unremarkable. No pericardial fluid is seen. Trace right pleural effusion is noted, reduced since prior examination. Parenchymal evaluation does show some minimal patchy airspace density in the right base. Left lung is clear. No discrete mass is identified. IMPRESSION: Postsurgical changes of esophagectomy with gastric pull-through. Overall appearance is similar to the examination from 12/13/2015. The right-sided pleural fluid has reduced and is now trace. There is minimal patchy density in the right base suggestive of minimal infiltrate. Remainder of the study is unremarkable. Dictated by: Dictated on workstation # [id number]
== END ==
LOC: RAD 12:14
PROVIDERS: ATTEND Internal Medicine
DX: Z08 Encounter for follow-up examination after completed treatment for malignant neoplasm (principal); Z85.01 Personal history of malignant neoplasm of esophagus; Z85.118 Personal history of other malignant neoplasm of bronchus and lung; Z90.49 Acquired absence of other specified parts of digestive tract; Z90.02 Acquired absence of larynx
CPT/HCPCS: 71260

== ENCOUNTER 2018-04-07 10:15 | Outpatient (CLI) | payer MEDICARE, OTHER ==
[~2018-04-07] VITALS: Ht 185.4 cm; Wt 85.5 kg
[~2018-04-07 10:15] MED LIST changes: -CATHETER FLUSH 10 ML SYR IV PRN; +HYDR-4196 PO; +HYDR-4226 PO; -HYDR-753 PO; -HYDR-757 PO; -IOHEXOL 350 MG/ML 100 ML (OMNIPAQUE 350) VIAL IV ONE; -NS 250 ML (IVPB) BAG IV ONE
== END 2018-04-07 10:33 | disposition home or self-care (01) ==
LOC: PREOP 10:15
PROVIDERS: ATTEND Internal Medicine
DX: Z01.818 Encounter for other preprocedural examination (principal)

== ENCOUNTER 2018-04-11 08:00 | Day surgery (SDC) | payer MEDICARE, OTHER ==
--- NOTE | 2018-03-28 17:53 | HISTORY AND PHYSICAL ---
DATE OF SERVICE: EGD HISTORY AND PHYSICAL HISTORY OF PRESENT ILLNESS: The patient is a 67-year-old white male seen for followup of adenocarcinoma of the lung as well as a secondary primary adenocarcinoma of the esophagus for which he underwent right lobectomy and esophagectomy with gastric pull-up, now four years ago. He also has a history of paroxysmal atrial fibrillation and moderate coronary artery disease, for which he has been on Plavix and Eliquis. His blood test revealed a 4.1 gram hemoglobin drop to 10.5 grams compared to his last CBC one year ago. He reports a month ago he had some dark stools, but has had no other abdominal symptoms. He has had no dysphagia and has generally felt well otherwise, although admits to a little more fatigue than baseline. He has had no palpitations or chest discomfort, has had no orthopnea, PND or pedal edema, and has had no other known bleeding. He denies cough or chest pain. PHYSICAL EXAMINATION: GENERAL: Reveals a white male, did not appear to be significantly pale, in no acute distress. VITAL SIGNS: His weight was up 12.8 pounds from 6 months ago. Blood pressure 156/96 initially, down to 140/84 at the end of the interview. CHEST: Clear to auscultation. CARDIOVASCULAR: Reveals a regular rate and rhythm without murmur, S3 or S4. ABDOMEN: Soft, supple without mass, organomegaly or tenderness. EXTREMITIES: Reveal no cyanosis, clubbing or edema. ASSESSMENT AND PLAN: 1. Likely upper gastrointestinal bleed aggravated by Plavix and Eliquis despite PPI therapy. Considering history of adenocarcinoma of the esophagus with gastric pull-up, we will first perform an EGD. As he has not had any definitive recent bleeding, we will have him continue aspirin and Plavix for now; discontinue for melena or bright red blood per rectum and notify us. A time next week was offered, but he states that he is going to be gone and so it was set up first available date for him on 04/11. He is to discontinue Plavix 5 days before and Eliquis 48 hours prior to the procedure. I will see him back in 1 month with a CBC. 2. Depression, not commented on above. After discussion, we will add Wellbutrin to his Effexor to make it to 150 mg of Effexor same dose, XL formulation, one each morning. Discussed potential side effects and expectations. Job ID: [id number] DocumentID: [id number] Dictated Date: 03/27/2018 16:16:54 Second Officer Date: 03/27/2018 17:01:07 Dictated By: MILLER ANTHONY MD MTDD
[~2018-04-11] VITALS: Ht 185.4 cm; Wt 85.5 kg
--- OUTSIDE RECORDS SUMMARY | 2018-04-11 08:04 | XMS REPORT | Clinical Summary ---
Author Author [facility] Organization [facility] Address Unknown Phone Unavailable Care Team Providers Care Vulnerability Assessment Analyst Name Role Phone Mirta Jesus MAGEN Unavailable Driss Veliz MD Unavailable Spike Singh MD PCP Anali Martinez RN Unavailable Unavailable Jovon Avila MD Unavailable Elizabeth Eisenberg RN Unavailable Unavailable Soto Interiano MD Unavailable Sari Ratliff RN Unavailable Unavailable Elizabeth Ring RN Unavailable Gordon Sarkar MD Unavailable Rossi Martinez RN Unavailable Unavailable Source Comments Some departments are not documenting in the electronic medical record. If you do not see the information that you expected, contact Release of Information in the Health Information Management department at [phone] for further assistance in locating additional records.[facility] Allergies Active Allergy Reactions Severity Noted Date [...] g by mouth daily. 3 Bottle 0 Active (MIRALAX) 17 gram/dose 14 powder oxyCODONE (ROXICODONE) 1 5-10 mL every 4 hours as 250 mL 0 03/09/20 Active mg/mL oral needed 14 solutionIndications: Esophageal [...] Taken Blood Pressure 154/109 05/14/2014 9:00 AM [employer]ES [employer] Pulse 69 05/14/2014 9:00 AM [employer] Temperature 36.4 C (97.5 F) 05/14/2014 7:58 AM [employer] Respiratory Rate - - Oxygen Saturation 97% 05/14/2014 9:00 AM [employer] Inhaled Oxygen - - Concentration Weight 108.5 kg (239 lb 3.2 oz) 05/14/2014 6:15 AM [employer] Height 185.4 cm (6' 1") 05/14/2014 6:15 AM [employer] Body Mass Index 31.56 05/14/2014 6:15 AM [employer] Plan of Treatment Health Maintenance Due Date Last Done Comments HEPATITIS C SCREENING 1949 PHYSICAL (COMPREHENSIVE) 1956 EXAM PERTUSSIS VACCINE 1960 TETANUS VACCINE 1966 COLORECTAL CANCER 10/18/1999 SCREENING SHINGLES RECOMBINANT 10/18/1999 VACCINE (1 of 2) ABDOMINAL AORTIC ANEURYSM 2014 SCREENING PNEUMONIA (PCV13/PPSV23) 01/13/2015 01/13/2014 VACCINES (1 of 2 - PCV13) INFLUENZA VACCINE 01/08/2018 Implants Implanted Type Area Contracts Intern Device Expiration Model / Identifier Date Serial / Lot Pacemaker Pacemaker Results Not on filefrom Last 3 Months
--- OUTSIDE RECORDS SUMMARY | 2018-04-11 08:05 | XMS REPORT | Continuity of Care Document ---
Author Author [facility] Organization [facility] Address Unknown Phone Unavailable Allergies Active Description Code Type Severity Reaction Onset Reported/Identified Relationship to Patient Clinical Status Yes meperidine [id number] Drug Allergy Unknown N/A 04/07/2018 Medications There is no data. Problems Date [...] Ot 693.0 DRUG DERMATITIS NOS 02/27/2014 MILLER ANTHONY MD Ot 995.91 SEPSIS 02/27/2014 MILLER ANTHONY [...] PERSONAL HISTORY OF MALIGNANT NEOPLASM O 12/30/2015 VIVIANE JOHN FACC, ALI FACP CCDS Ot I10 ESSENTIAL (PRIMARY) HYPERTENSION 12/30/2015 VIVIANE OREC, ALI FACP CCDS Ot I49.5 SICK SINUS [...] I49.5 SICK SINUS SYNDROME 01/20/2016 VIVIANE JOHN [facility], ALI FACP CCDS Ot R06.02 SHORTNESS [...] CCDS Ot I25.10 ATHSCL HEART DISEASE OF [place] CORONARY 01/31/2016 VIVIANE JOHN FACC, ALI FACP CCDS Ot I42.0 DILATED CARDIOMYOPATHY 01/31/2016 VIVIANE ROE, ALI FACP CCDS Ot K21.9 GASTRO-ESOPHAGEAL REFLUX DISEASE WITHOUT 01/31/2016 VIVIANE JOHN FACC, ALI FACP CCDS Ot R00.1 BRADYCARDIA, UNSPECIFIED 01/31/2016 VIVIANE JOHN FACC, ALI FACP CCDS Ot Z72.0 TOBACCO USE 01/31/2016 VIVIANE JOHN FACC, ALI FACP CCDS Ot Z79.899 OTHER APPLICATION SYSTEMS ADMINISTRATOR (CURRENT) DRUG THERAPY 01/31/2016 [facility], ALI FACP CCDS Ot Z90.2 ACQUIRED ABSENCE OF LUNG [PART OF] 01/31/2016 VIVIANE JOHN FACC, ALI FACP CCDS Ot Z95.0 PRESENCE OF CARDIAC PACEMAKER 02/07/2016 VIVIANE JOHN FACC, ALI FACP CCDS Ot I10 ESSENTIAL (PRIMARY) HYPERTENSION 02/07/2016 VIVIANE ROEC, ALI FACP CCDS Ot I25.10 ATHSCL HEART DISEASE OF [place] CORONARY 02/07/2016 VIVIANE JOHN [facility], ALI FACP CCDS Ot I42.0 DILATED CARDIOMYOPATHY 02/07/2016 VIVIANE JOHN [facility], ALI FACP CCDS Ot K21.9 GASTRO-ESOPHAGEAL REFLUX DISEASE WITHOUT 02/07/2016 VIVIANE JOHN [facility], ALI FACP CCDS Ot R00.1 BRADYCARDIA, UNSPECIFIED 02/07/2016 VIVIANE ROE, ALI FACP CCDS Ot Z72.0 TOBACCO USE 02/07/2016 VIVIANE ROE, ALI FACP CCDS Ot Z79.899 OTHER APPLICATION SYSTEMS ADMINISTRATOR (CURRENT) DRUG THERAPY 02/07/2016 VIVIANE ROE, ALI [...] I49.5 SICK SINUS SYNDROME 02/08/2016 VIVIANE JOHN FACC, ALI FACP CCDS Ot R06.02 SHORTNESS OF BREATH 02/08/2016 VIVIANE JOHN FACC, ALI FACP CCDS Ot Z85.01 PERSONAL HISTORY OF MALIGNANT NEOPLASM O 02/08/2016 VIVIANE JOHN FACC, ALI FACP CCDS Ot I10 ESSENTIAL (PRIMARY) HYPERTENSION 02/08/2016 VIVIANE JOHN FACC, ALI FACP CCDS Ot I49.5 SICK SINUS SYNDROME 02/08/2016 VIVIANE JOHN FACC, ALI FACP CCDS Ot R06.02 SHORTNESS OF BREATH 02/08/2016 VIVIANE JOHN FACC, ALI FACP CCDS Ot Z85.01 PERSONAL HISTORY OF MALIGNANT NEOPLASM O 02/08/2016 RAJ JOHN, MILLER Cruz Ot R63.4 ABNORMAL WEIGHT LOSS 02/08/2016 RAJ JOHN, MILLER Cruz Ot Z85.01 PERSONAL HISTORY OF MALIGNANT NEOPLASM O 05/27/2017 RAJ JOHN, MILLER Cruz Ot V72.84 EXAM PRE-OPERATIVE NOS 05/27/2017 RAJ JOHN, MILLER Cruz Ot 150.9 MAL JUDI ESOPHAGUS NOS 05/27/2017 RAJ JOHN, MILLER Cruz Ot 162.9 MAL JUDI BRONCH/LUNG NOS 05/27/2017 MILLER ANTHONY MD Ot 150.9 MAL JUDI ESOPHAGUS NOS 05/27/2017 RAJ JOHN, MILLER Cruz Ot 162.9 MAL JUDI BRONCH/LUNG NOS 05/27/2017 MILLER ANTHONY MD Ot 285.9 ANEMIA NOS 05/27/2017 RAJ JOHN, MILLER Cruz Ot 486 PNEUMONIA, ORGANISM NOS 05/29/2017 VIVIANE JOHN FACC, ALI FACP CCDS Ot F17.210 NICOTINE DEPENDENCE, CIGARETTES, UNCOMPL 05/29/2017 VIVIANE JOHN FACC, MARRY FACP CCDS Ot I11.0 HYPERTENSIVE HEART DISEASE WITH HEART FA 05/29/2017 MARRY PAN MD, FACC FACP CCDS Ot I25.10 ATHSCL HEART DISEASE OF [place] CORONARY 05/29/2017 VIVIANE JOHN FACC, ALI FACP CCDS Ot I42.0 DILATED CARDIOMYOPATHY 05/29/2017 VIVIANE JOHN FACC, ALI FACP CCDS Ot I48.92 UNSPECIFIED ATRIAL FLUTTER 05/29/2017 VIVIANE JOHN FACC, ALI FACP CCDS Ot I50.22 CHRONIC SYSTOLIC (CONGESTIVE) HEART FAIL 05/29/2017 VIVIANE JOHN FACC, ALI FACP CCDS Ot I65.23 OCCLUSION AND STENOSIS OF [place] 05/29/2017 MARRY PAN MD, FACC FACP CCDS Ot K21.9 GASTRO-ESOPHAGEAL REFLUX DISEASE WITHOUT 05/29/2017 VIVIANE JOHN FACC, ALI FACP CCDS Ot Z79.01 APPLICATION SYSTEMS ADMINISTRATOR (CURRENT) USE OF ANTICOAGULANT 05/29/2017 MARRY PAN MD, FACC FACP CCDS Ot Z79.82 APPLICATION SYSTEMS ADMINISTRATOR (CURRENT) USE OF ASPIRIN 05/29/2017 VIVIANE JOHN FACC, ALI FACP CCDS Ot Z79.899 OTHER APPLICATION SYSTEMS ADMINISTRATOR (CURRENT) DRUG THERAPY 05/29/2017 VIVIANE JOHN FACC, MARRY FACP CCDS Ot Z85.01 PERSONAL HISTORY OF MALIGNANT NEOPLASM O 05/29/2017 VIVIANE JOHN FACC ALI FACP CCDS Ot Z95.810 PRESENCE OF AUTOMATIC (IMPLANTABLE) CARD 05/30/2017 MARRY PAN MD, FACC FACP CCDS Ot F17.210 NICOTINE DEPENDENCE, CIGARETTES, UNCOMPL 05/30/2017 VIVIANE JOHN FACC ALI FACP CCDS Ot I11.0 HYPERTENSIVE HEART DISEASE WITH HEART FA 05/30/2017 VIVIANE JOHN FACC ALI FACP CCDS Ot I25.10 ATHSCL HEART DISEASE OF [place] CORONARY 05/30/2017 MARRY PAN MD, FACC FACP CCDS Ot I42.0 DILATED CARDIOMYOPATHY 05/30/2017 VIVIANE JOHN FACC, ALI FACP CCDS Ot I48.92 UNSPECIFIED ATRIAL FLUTTER 05/30/2017 VIVIANE JOHN FACC, MARRY FACP CCDS Ot I50.22 CHRONIC SYSTOLIC (CONGESTIVE) HEART FAIL 05/30/2017 VIVIANE JOHN FACC, ALI FACP CCDS Ot I65.23 OCCLUSION AND STENOSIS OF [place] 05/30/2017 VIVIANE JOHN FACC, MARRY FACP CCDS Ot K21.9 GASTRO-ESOPHAGEAL REFLUX DISEASE WITHOUT 05/30/2017 VIVIANE JOHN FACC, ALI FACP CCDS Ot Z79.01 MCC (CURRENT) USE OF ANTICOAGULANT 05/30/2017 MARRY PAN MD, FACC FACP CCDS Ot Z79.82 MCC (CURRENT) USE OF ASPIRIN 05/30/2017 VIVIANE JOHN FACC, ALI FACP CCDS Ot Z79.899 OTHER APPLICATION SYSTEMS ADMINISTRATOR (CURRENT) DRUG THERAPY 05/30/2017 VIVIANE JOHN FACC, ALI FACP CCDS Ot Z85.01 PERSONAL HISTORY OF MALIGNANT NEOPLASM O 05/30/2017 VIVIANE JOHN FACC, ALI FACP CCDS Ot Z95.810 PRESENCE OF AUTOMATIC (IMPLANTABLE) CARD 05/31/2017 VIVIANE JOHN FACC, ALI FACP CCDS Ot F17.210 NICOTINE DEPENDENCE, CIGARETTES, UNCOMPL 05/31/2017 VIVIANE JOHN FACC, ALI FACP CCDS Ot I11.0 HYPERTENSIVE HEART DISEASE WITH HEART FA 05/31/2017 VIVIANE JOHN FACC, ALI FACP CCDS Ot I25.10 ATHSCL HEART DISEASE OF [place] CORONARY 05/31/2017 VIVIANE JOHN FACC, MARRY FACP CCDS Ot I42.0 DILATED CARDIOMYOPATHY 05/31/2017 VIVIANE JOHN FACC, ALI FACP CCDS Ot I48.92 UNSPECIFIED ATRIAL FLUTTER 05/31/2017 VIVIANE JOHN FACC, ALI FACP CCDS Ot I50.22 CHRONIC SYSTOLIC (CONGESTIVE) HEART FAIL 05/31/2017 VIVIANE JOHN FACC, MARRY FACP CCDS Ot I65.23 OCCLUSION AND STENOSIS OF [place] 05/31/2017 VIVIANE JOHN FACC, ALI FACP CCDS Ot K21.9 GASTRO-ESOPHAGEAL REFLUX DISEASE WITHOUT 05/31/2017 VIVIANE JOHN FACC, ALI FACP CCDS Ot Z79.01 APPLICATION SYSTEMS ADMINISTRATOR (CURRENT) USE OF ANTICOAGULANT 05/31/2017 VIVIANE JOHN FACC, ALI FACP CCDS Ot Z79.82 APPLICATION SYSTEMS ADMINISTRATOR (CURRENT) USE OF ASPIRIN 05/31/2017 VIVIANE JOHN FACC, MARRY FACP CCDS Ot Z79.899 OTHER APPLICATION SYSTEMS ADMINISTRATOR (CURRENT) DRUG THERAPY 05/31/2017 VIVIANE JOHN FACC, ALI FACP CCDS Ot Z85.01 PERSONAL HISTORY OF MALIGNANT NEOPLASM O 05/31/2017 VIVIANE JOHN FACC, MARRY FACP CCDS Ot Z95.810 PRESENCE OF AUTOMATIC (IMPLANTABLE) CARD 06/06/2017 VIVIANE JOHN FACC ALI FACP CCDS Ot F17.210 NICOTINE DEPENDENCE, CIGARETTES, UNCOMPL 06/06/2017 VIVIANE JOHN FACC, ALI FACP CCDS Ot I11.0 HYPERTENSIVE HEART DISEASE WITH HEART FA 06/06/2017 VIVIANE JOHN FACC, ALI FACP CCDS Ot I25.10 ATHSCL HEART DISEASE OF [place] CORONARY 06/06/2017 VIVIANE JOHN FACC, ALI FACP CCDS Ot I42.0 DILATED CARDIOMYOPATHY 06/06/2017 VIVIANE JOHN FACC, ALI FACP CCDS Ot I48.92 UNSPECIFIED ATRIAL FLUTTER 06/06/2017 VIVIANE JOHN FACC, ALI FACP CCDS Ot I50.22 CHRONIC SYSTOLIC (CONGESTIVE) HEART FAIL 06/06/2017 VIVIANE JOHN FACC, ALI FACP CCDS Ot I65.23 OCCLUSION AND STENOSIS OF [place] 06/06/2017 VIVIANE JOHN FACC, ALI FACP CCDS Ot K21.9 GASTRO-ESOPHAGEAL REFLUX DISEASE WITHOUT 06/06/2017 VIVIANE JOHN FACC, ALI FACP CCDS Ot Z79.01 APPLICATION SYSTEMS ADMINISTRATOR (CURRENT) USE OF ANTICOAGULANT 06/06/2017 VIVIANE JOHN FACC, ALI FACP CCDS Ot Z79.82 MCC (CURRENT) USE OF ASPIRIN 06/06/2017 VIVIANE JOHN FACC, ALI FACP CCDS Ot Z79.899 OTHER MCC (CURRENT) DRUG THERAPY 06/06/2017 VIVIANE JOHN FACC, ALI FACP CCDS Ot Z85.01 PERSONAL HISTORY OF MALIGNANT NEOPLASM O 06/06/2017 VIVIANE JOHN FACC, ALI FACP CCDS Ot Z95.810 PRESENCE OF AUTOMATIC (IMPLANTABLE) CARD 07/31/2017 JANELLE THERESA L SUPERVISOR ASSEMBLY STOCK Ot I10 ESSENTIAL (PRIMARY) HYPERTENSION 07/31/2017 SARTHAKMA, THERESA L SUPERVISOR ASSEMBLY STOCK Ot I25.10 ATHSCL HEART DISEASE OF [place] CORONARY 07/31/2017 SARTHAKMA THERESA L SUPERVISOR ASSEMBLY STOCK Ot I25.5 ISCHEMIC CARDIOMYOPATHY 07/31/2017 SARTHAKMA THERESA L SUPERVISOR ASSEMBLY STOCK Ot I65.23 OCCLUSION AND STENOSIS OF [place] 08/29/2017 BAIMA THERESA L SUPERVISOR ASSEMBLY STOCK Ot I10 ESSENTIAL (PRIMARY) HYPERTENSION 08/29/2017 BAIMA, THERESA L SUPERVISOR ASSEMBLY STOCK Ot I25.10 ATHSCL HEART DISEASE OF [place] CORONARY 08/29/2017 SARTHAKMA THERESA L SUPERVISOR ASSEMBLY STOCK Ot I25.5 ISCHEMIC CARDIOMYOPATHY 08/29/2017 BAIMA THERESA L SUPERVISOR ASSEMBLY STOCK Ot I65.23 OCCLUSION AND STENOSIS OF [place] 09/27/2017 RAJ JOHN, MILLER Cruz Ot Z08 ENCNTR FOR FOLLOW-UP EXAM AFTER TRTMT FO 09/27/2017 MILLER ANTHONY MD, Ot85.01 PERSONAL HISTORY OF MALIGNANT NEOPLASM O 09/27/2017 RAJ JOHN, MILLER Cruz Ot Z85.118 PERSONAL HISTORY OF MALIGNANT NEOPLASM O 09/27/2017 RAJ JOHN, MILLER Cruz Ot Z90.02 ACQUIRED ABSENCE OF LARYNX 09/27/2017 MILLER ANTHONY MD Ot Z90.49 ACQUIRED ABSENCE OF OTHER SPECIFIED PART 2017 MILLER ANTHONY MD Ot Z08 ENCNTR FOR FOLLOW-UP EXAM AFTER TRTMT FO 2017 MILLER ANTHONY MD Ot Z85.01 PERSONAL HISTORY OF MALIGNANT NEOPLASM O 2017 MILLER ANTHONY MD Ot Z85.118 PERSONAL HISTORY OF MALIGNANT NEOPLASM O 2017 MILLER ANTHONY MD, Ot Z90.02 ACQUIRED ABSENCE OF LARYNX 2017 MILLER ANTHONY MD Ot Z90.49 ACQUIRED ABSENCE OF OTHER SPECIFIED PART 04/07/2018 MILLER ANTHONY MD Ot Z01.818 ENCOUNTER FOR OTHER PREPROCEDURAL EXAMIN 04/07/2018 MILLER ANTHONY MD Ot Z01.818 ENCOUNTER FOR OTHER PREPROCEDURAL EXAMIN 04/07/2018 MILLER ANTHONY MD Ot Z01.818 ENCOUNTER FOR OTHER PREPROCEDURAL EXAMIN 04/11/2018 MILLER ANTHONY MD Ot V72.84 EXAM PRE-OPERATIVE NOS 04/11/2018 MILLER ANTHONY MD Ot 150.9 MAL JUDI ESOPHAGUS NOS 04/11/2018 MILLER ANTHONY MD Ot 162.9 MAL JUDI BRONCH/LUNG NOS 04/11/2018 MILLER ANTHONY MD Ot 150.9 MAL JUDI ESOPHAGUS NOS 04/11/2018 MILLER ANTHONY MD Ot 162.9 MAL JUDI BRONCH/LUNG NOS 04/11/2018 MILLER ANTHONY MD Ot 285.9 ANEMIA NOS 04/11/2018 MILLER ANTHONY MD Ot 486 PNEUMONIA, ORGANISM NOS 04/11/2018 THERESA LUIS SUPERVISOR ASSEMBLY STOCK Ot I10 ESSENTIAL (PRIMARY) HYPERTENSION 04/11/2018 THERESA LUIS SUPERVISOR ASSEMBLY STOCK Ot I25.10 ATHSCL HEART DISEASE OF [place] CORONARY 04/11/2018 THERESA LUIS SUPERVISOR ASSEMBLY STOCK Ot I25.5 ISCHEMIC CARDIOMYOPATHY 04/11/2018 THERESA LUIS SUPERVISOR ASSEMBLY STOCK Ot I65.23 OCCLUSION AND STENOSIS OF [place]ATERAL [place] 04/11/2018 MILLER ANTHONY MD, Ot Z08 ENCNTR FOR FOLLOW-UP EXAM AFTER TRTMT FO 04/11/2018 MILLER ANTHONY MD, Ot Z85.01 PERSONAL HISTORY OF MALIGNANT NEOPLASM O 04/11/2018 MILLER ANTHONY MD, Ot Z85.118 PERSONAL HISTORY OF MALIGNANT NEOPLASM O 04/11/2018 MILLER ANTHONY MD, Ot Z90.02 ACQUIRED ABSENCE OF LARYNX 04/11/2018 MILLER ANTHONY MD, Ot Z90.49 ACQUIRED ABSENCE OF OTHER SPECIFIED PART Procedures There is no data. Results Test [...] Staphylococcus aureus (MRSA) screening culture NEG NRG Automated blood complete blood count (hemogram) panel - 05/28/17 07:32 Blood leukocytes automated count (number/volume) 8.7 10*3/uL 4.3-11.0 Blood erythrocytes automated count (number/volume) 4.30 10*6/uL 4.35-5.85 Venous blood hemoglobin measurement (mass/volume) 13.6 g/dL 13.3-17.7 Blood hematocrit (volume fraction) 41 % 40-54 Automated erythrocyte mean corpuscular volume 95 [foz_us] 80-99 Automated erythrocyte mean corpuscular hemoglobin (mass per erythrocyte) 32 pg 25-34 Automated erythrocyte mean corpuscular hemoglobin concentration measurement ( mass/volume) 33 g/dL 32-36 Automated erythrocyte distribution width ratio 13.0 % 10.0-14.5 Automated blood platelet count (count/volume) 313 10*3/uL 130-400 Automated blood platelet mean volume measurement 10.4 [foz_us] 7.4-10.4 PT panel in platelet poor plasma by coagulation assay - 05/28/17 07:32 Prothrombin time (PT) in platelet poor plasma by coagulation assay 12.4 s 12.2-14.7 INR in platelet poor plasma or blood by coagulation assay 0.9 0.8-1.4 Activated partial thromboplastin time (aPTT) in platelet poor plasma bycoagulation assay - 05/28/17 07:32 Activated partial thromboplastin time (aPTT) in platelet poor plasma bycoagulation assay 26 s 24-35 Comprehensive metabolic panel - 05/28/17 07:32 Serum or plasma sodium measurement (moles/volume) 140 mmol/L 135-145 Serum or plasma potassium measurement (moles/volume) 4.0 mmol/L 3.6-5.0 Serum or plasma chloride measurement (moles/volume) 105 mmol/L 98-107 Carbon dioxide 27 mmol/L 21-32 Serum or plasma anion gap determination (moles/volume) 8 mmol/L 5-14 Serum or plasma urea nitrogen measurement (mass/volume) 15 mg/dL 7-18 Serum or plasma creatinine measurement (mass/volume) 0.84 mg/dL 0.60-1.30 Serum or plasma urea nitrogen/creatinine mass ratio 18 NRG Serum or plasma creatinine measurement with calculation of estimated glomerular filtration rate > NRG Serum or plasma glucose measurement (mass/volume) 91 mg/dL 70-105 Serum or plasma calcium measurement (mass/volume) 9.4 mg/dL 8.5-10.1 Serum or plasma total bilirubin measurement (mass/volume) 0.3 mg/dL 0.1-1.0 Serum or plasma alkaline phosphatase measurement (enzymatic activity/volume) 93 U/L 40-136 Serum or plasma aspartate aminotransferase measurement (enzymatic activity/ volume) 13 U/L 5-34 Serum or plasma alanine aminotransferase measurement (enzymatic activity/volume ) 12 U/L 0-55 Serum or plasma protein measurement (mass/volume) 7.3 g/dL 6.4-8.2 Serum or plasma albumin measurement (mass/volume) 3.7 g/dL 3.2-4.5 Lipid 1996 panel - 05/28/17 07:32 Serum or plasma triglyceride measurement (mass/volume) 141 mg/dL <150 Serum or plasma cholesterol measurement (mass/volume) 175 mg/dL < 200 Serum or plasma cholesterol in HDL measurement (mass/volume) 44 mg/ dL 40-60 Cholesterol in LDL [mass/volume] in serum or plasma by direct assay 114 mg/dL 1-129 Serum or plasma cholesterol in VLDL measurement (mass/volume) 28 mg/ dL 5-40 Methicillin resistant Staphylococcus aureus (MRSA) screening culture - 07:32 Methicillin resistant Staphylococcus aureus (MRSA) screening culture NEG NRG Automated blood complete blood count (hemogram) panel - 05/29/17 04:45 Blood leukocytes automated count (number/volume) 12.7 10*3/uL 4.3-11.0 Blood erythrocytes automated count (number/volume) 4.09 10*6/uL 4.35-5.85 Venous blood hemoglobin measurement (mass/volume) 12.9 g/dL 13.3-17.7 Blood hematocrit (volume fraction) 38 % 40-54 Automated erythrocyte mean corpuscular volume 94 [foz_us] 80-99 Automated erythrocyte mean corpuscular hemoglobin (mass per erythrocyte) 32 pg 25-34 Automated erythrocyte mean corpuscular hemoglobin concentration measurement ( mass/volume) 34 g/dL 32-36 Automated erythrocyte distribution width ratio 13.0 % 10.0-14.5 Automated blood platelet count (count/volume) 297 10*3/uL 130-400 Automated blood platelet mean volume measurement 10.6 [foz_us] 7.4-10.4 Whole blood basic metabolic panel - 05/29/17 04:45 Serum or plasma sodium measurement (moles/volume) 136 mmol/L 135-145 Serum or plasma potassium measurement (moles/volume) 3.6 mmol/L 3.6-5.0 Serum or plasma chloride measurement (moles/volume) 106 mmol/L 98-107 Carbon dioxide 20 mmol/L 21-32 Serum or plasma anion gap determination (moles/volume) 10 mmol/L 5-14 Serum or plasma urea nitrogen measurement (mass/volume) 15 mg/dL 7-18 Serum or plasma creatinine measurement (mass/volume) 0.74 mg/dL 0.60-1.30 Serum or plasma urea nitrogen/creatinine mass ratio 20 NRG Serum or plasma creatinine measurement with calculation of estimated glomerular filtration rate > NRG Serum or plasma glucose measurement (mass/volume) 109 mg/dL 70-105 Serum or plasma calcium measurement (mass/volume) 8.8 mg/dL 8.5-10.1 Encounters ACCT No. Visit Date/Time Discharge Status Pt. Type Provider Facility Loc./Unit Complaint [id number] 04/07/2018 10:15:00 04/07/2018 10:33:00 DIS Outpatient MILLER ANTHONY MD [facility] PREOP EGD [id number] 09/26/2017 12:14:00 09/26/2017 23:59:59 CLS Outpatient MILLER ANTHONY MD [facility] RAD F/U RUL END FOR LUNG AND ESOPHAGEAL CA [id number] 07/30/2017 10:28:00 07/30/2017 23:59:59 CLS Outpatient THERESA LUIS [facility] CARD CAD [id number] 05/28/2017 07:12:00 05/29/2017 09:43:00 DIS Outpatient MARRY PAN MD, FACC, FACP CCDS [facility] CATH CAD,DILATED CM [id number] 01/31/2016 10:16:00 01/31/2016 19:10:00 DIS Outpatient MARRY PAN MD, FACC FACP CCDS [facility] CATH DILATED CARDIOMYPATHY,HTN,SOB,ANGINA [id number] 12/29/2015 07:29:00 12/29/2015 23:59:59 CLS Outpatient MARRY PAN MD, FACC, FACP CCDS [facility] CARD SOB; HISTORY OF ESOPHAGEAL CANCER; HTN;SICK SINUS [id number] 12/26/2015 13:45:00 12/26/2015 23:59:59 CLS Outpatient MARRY PAN MD, FACC, FACP CCDS [facility] CARD SOB; HISTORY OF ESOPHAGEAL CANCER, HTN;SICK SINUS [id number] 12/13/2015 13:53:00 12/13/2015 23:59:59 CLS Outpatient MILLER ANTHONY MD [facility] RAD HX OF ESOPHAGEAL CA, WEIGHT LOSS [id number] 04/20/2015 08:04:00 04/20/2015 23:59:59 CLS Outpatient MILLER ANTHONY MD [facility] RAD FOLLOW UP RIGHT LOWER LOBECTOMY LUNG CANCER [id number] 03/15/2014 12:30:00 03/15/2014 23:59:59 CLS Outpatient MILLER ANTHONY MD [facility] ANEMIA,CA OF LUNG, PNEUMONIA,ESOPHAGEAL CA [id number] 02/26/2014 18:17:00 02/27/2014 14:20:00 DIS Inpatient MILLER ANTHONY MD [facility] CSD RECENT THORACIC SURGERY/ HYPOXIA/PULMONARY EDEMA [id number] 02/24/2014 11:49:00 02/24/2014 23:59:59 CLS Outpatient MILLER ANTHONY MD [facility] LUNG AND ESPOHAGEAL CA [id number] 09/18/2013 07:29:00 09/18/2013 10:25:00 DIS Outpatient MILLER ANTHONY MD [facility] SDC DYSPHAGIA; SCREENING [id number] 09/17/2013 07:16:00 09/17/2013 23:59:59 CLS Outpatient MILLER ANTHONY MD [facility] PREOP DYSPHASIA; SCREENING [id number] 04/11/2018 08:00:00 ACT Outpatient MILLER ANTHONY MD [facility] ENDO GI BLEED WITH ANEMIA [id number] 01/25/2016 09:10:00 Document Registration [id number] 01/25/2016 09:10:00 Document Registration [id number] 01/25/2016 09:10:00 Document Registration [id number] 02/28/2011 10:24:00 Document Registration [id number] 09/14/2010 09:46:00 Document Registration [id number] 08/02/2010 14:20:00 Document Registration [id number] 07/06/2010 15:51:00 Document Registration [id number] 03/03/2010 10:23:00 Document Registration [id number] 03/01/2010 13:06:00 Document Registration [id number] 02/21/2010 11:25:00 Document Registration [id number] 01/19/2010 11:40:00 Document Registration [id number] 02/15/2009 11:56:00 Document Registration [id number] 03/25/2007 10:58:00 Document Registration
[2018-04-11 08:20] VITALS: BP 146/83
[2018-04-11] MEDS ORDERED: D5 LR IV SOLUTION 1,000 ML IV ONE (08:23)
[2018-04-11] MEDS ORDERED: fentaNYL INJECTION 100 MCG/2 ML AMP IVP ONE (08:30)
[2018-04-11] MEDS ORDERED: MIDAZOLAM 2 MG/2 ML (VERSED) VIAL IVP ONE (08:30)
[2018-04-11] MEDS ORDERED: HURRICAINE EXT TUBE (BENZOCAINE) XX PRN (08:30)
[2018-04-11] MEDS ORDERED: D5 LR IV SOLUTION 1,000 ML IV PRN (08:30)
[2018-04-11] MEDS ORDERED: LIDOCAINE JELLY 2% 6 ML SYRINGE MM PRN (08:30)
[2018-04-11] MEDS ORDERED: fentaNYL INJECTION 100 MCG/2 ML AMP ONE (09:09)
[2018-04-11] MEDS ORDERED: MIDAZOLAM 2 MG/2 ML (VERSED) VIAL ONE ×2 (09:09)
[2018-04-11] MEDS ORDERED: HURRICAINE EXT TUBE (BENZOCAINE) ONE (09:10)
[2018-04-11] MEDS ORDERED: LIDOCAINE JELLY 2% 6 ML SYRINGE ONE (09:10)
--- NOTE | 2018-04-11 09:19 | Pre-Op Note & Conscious Sedat ---
Pre-Operative Progress Note H&P Reviewed The H&P was reviewed, patient examined and no changes noted. Date H&P Reviewed: Apr 11, 2018 Time H&P Reviewed: 09:15 Conscious Sedation Pre-Proced ASA Score 3 For ASA 3 and 4: Consider anesthesia and medical clearance. Also, for patients with a history of failed moderate sedation consider anesthesia. Airway Lungs Heart ASA score ASA 1: a normal healthy patient ASA 2: a patient with a mild systemic disease (mid diabetes, controlled hypertension, obesity ASA 3: a patient with a severe systemic disease that limits activity (angina , COPD, prior Myocardial infarction) ASA 4: a patient with an incapacitating disease that is a constant threat to life (CHF, renal failure) ASA 5: a moribund patient not expected to survive 24 hrs. (ruptured aneurysm) ASA 6: a declared brain patient whose organs are being harvested. For emergent operations, add the letter E after the classification Mallampati Classification Grade 2 Sedation Plan Analgesia, Amnesia, Plan communicated to team members, Discussed options with patient/fam, Discussed risks with patient/fam The patient is an appropriate candidate to undergo the planned procedure, sedation, and anesthesia. The patient immediately re-assessed prior to indication. MILLER ANTHONY MD Apr 11, 2018 09:19
[2018-04-11 09:55] VITALS: BP 154/78
[2018-04-11] MEDS ORDERED: ASPI-983 PO (10:01)
[2018-04-11] MEDS ORDERED: FERR-84 PO (10:17)
[2018-04-11 10:25] VITALS: BP 160/84
[2018-04-11 10:52] VITALS: BP 160/84
--- NOTE | 2018-04-11 20:50 | OPERATIVE REPORT ---
DATE OF SERVICE: EGD SUMMARY INDICATION FOR THE PROCEDURE: Upper GI bleed with anemia. The patient was placed in left lateral decubitus position. The endoscope was inserted in the oral cavity and under direct visualization, the esophagus was intubated. The endoscope was passed down the esophagus through the stomach and into the second portion of the duodenum. Careful inspection was made. The patient tolerated the procedure well. FINDINGS: Proximal and mid esophagus were unremarkable. Secondary to gastric pull-up procedure, the Z line was proximally placed at 30 cm from the incisoral orifice. The anastomotic margin did reveal some erosion and there was a small amount of superficial blood with no evidence for blood in the stomach. No ulcerations were noted and no evidence to suggest recurrence of carcinoma was apparent. Photographic documentation was obtained. The patient had been taking Maria Ines-[place] and had held the aspirin and Plavix. We had held Eliquis and Plavix for 48 hours. For these reasons, I did not obtain a biopsy as risks would likely to outweigh any potential benefit. The stomach was unremarkable in appearance. No evidence for blood was noted in the stomach, no ulceration or erosions were noted. The pylorus, the pyloric channel, the duodenal bulb and second portion of duodenum were unremarkable as well. ASSESSMENT: 1. Likely erosive esophagitis aggravated by triple therapy. The patient had only been taking his omeprazole in the morning. He was advised to increase it to b.i.d. He has roughly 11 months out from drug-eluting stent placement to the right coronary artery. Considering the risks of triple therapy and the fact that this patient is a [employer] and reaffirms the fact that he would not accept blood transfusion in the event of life-threatening hemorrhage, I have advised that he discontinue Plavix. We will have him resume a baby aspirin daily and initiate ferrous sulfate 325 mg daily and he is scheduled for repeat CBC in my office in 2 weeks. We will have him wait a week before resuming Eliquis, but will discuss this further with Dr. Baltazar. In review of his record, his indication for Eliquis appears to be intermittent atrial flutter picked up on his pacemaker interrogation. I did not find any past history for atrial fibrillation and he has no past history for TIA or CVA. We discussed the importance of avoiding all aspirin products and nonsteroidal medications [id number]-[id number] including Maria Ines[place]. Tylenol only or hydrocodone not to exceed 8 tablets per day of either combined medication. The patient reports that he has been having some lightheadedness intermittently upon getting up. We did obtain orthostatic blood pressures and pulse today. He was 160/84 supine with a heart rate of 61, standing. He was 129/77 with a pulse of 64. CV revealed a regular rate and rhythm without S3 or S4. He has a soft 1 to 2/6 systolic ejection murmur heard best intercostal space without evidence for pulsus parvus et tardus. We discussed the importance of hydration as he reports poor fluid intake and being careful about not getting up too quickly. We will reevaluate orthostatic pressures on return. Job ID: [id number] DocumentID: [id number] Dictated Date: 04/11/2018 11:19:48 Data Governance Consultant Date: 04/11/2018 20:50:26 Dictated By: MILLER ANTHONY MD MTDD
== END 2018-04-11 10:40 | disposition home or self-care (01) ==
LOC: ENDO 08:00
PROVIDERS: ATTEND Internal Medicine
DX: K92.2 Gastrointestinal hemorrhage, unspecified (principal); D64.9 Anemia, unspecified; Z85.01 Personal history of malignant neoplasm of esophagus; I25.10 Atherosclerotic heart disease of native coronary artery without angina pectoris; I48.92 Unspecified atrial flutter; F32.9 Major depressive disorder, single episode, unspecified; Z79.01 Long term (current) use of anticoagulants; Z79.02 Long term (current) use of antithrombotics/antiplatelets; Z79.82 Long term (current) use of aspirin; Z85.118 Personal history of other malignant neoplasm of bronchus and lung; Z90.49 Acquired absence of other specified parts of digestive tract; Z95.5 Presence of coronary angioplasty implant and graft; Z95.0 Presence of cardiac pacemaker

== ENCOUNTER → 2018-10-31 | Outpatient (CLI) | payer MEDICARE, OTHER ==
[~2018-10-31] MED LIST changes: +FERR-84 PO
--- NOTE | 2018-10-31 14:35 | Diagnostic Imaging Report ---
PROCEDURE: CT chest with contrast only. TECHNIQUE: Multiple contiguous axial images were obtained through the chest after administration of intravenous contrast. Auto Exposure Controls were utilized during the CT exam to meet ALARA standards for radiation dose reduction. INDICATION: Right lung carcinoma and esophageal carcinoma, followup. COMPARISON: Correlation is made with prior CT from 09/26/2017. FINDINGS: A left chest wall cardiac pacemaker is noted. Postsurgical changes of esophagectomy with gastric pull-through are again seen. Postsurgical changes of right lower lobectomy with multiple surgical clips in the right hilum are again seen. No axillary lymphadenopathy is identified. There are normal-sized lymph nodes in the mediastinum. No definite mediastinal or hilar lymphadenopathy is detected. No pericardial fluid is seen. Trace right pleural fluid or pleural thickening is similar to prior exam. Lungs appear to be fairly clear. No infiltrate or mass is detected. Upper abdomen does show some mild nodular enlargement of the left adrenal gland, similar to prior study. The right adrenal gland is unremarkable. IMPRESSION: Stable CT of the chest with contrast when compared with exam from 09/26/2017. No thoracic lymphadenopathy or evidence of pulmonary metastatic disease is detected. Dictated by: Dictated on workstation # [id number]
== END ==
LOC: RAD 13:19
PROVIDERS: ATTEND Internal Medicine
DX: C78.89 Secondary malignant neoplasm of other digestive organs (principal); Z95.0 Presence of cardiac pacemaker; Z90.49 Acquired absence of other specified parts of digestive tract; Z90.2 Acquired absence of lung [part of]
CPT/HCPCS: 71260

== ENCOUNTER → 2019-08-03 | Outpatient (CLI) | payer MEDICARE, OTHER ==
[~2019-08-03] MED LIST changes: +OMEP20CA18 PO
== END ==
LOC: CARD 10:22
PROVIDERS: ATTEND Internal Medicine Cardiovascular Disease
DX: I48.0 Paroxysmal atrial fibrillation (principal); I77.89 Other specified disorders of arteries and arterioles; I42.0 Dilated cardiomyopathy; I25.5 Ischemic cardiomyopathy; R06.02 Shortness of breath; Z72.0 Tobacco use
CPT/HCPCS: 93306

== ENCOUNTER → 2019-08-04 | Outpatient (CLI) | payer MEDICARE, OTHER ==
[~2019-08-04] VITALS: Ht 187 cm; Wt 92.0 kg
[~2019-08-04] MED LIST changes: +CATHETER FLUSH 10 ML SYR IV PRN; +REGADENOSON 0.4 MG/5 ML SYR (LEXISCAN) IV ONE
[2019-08-04 09:11] VITALS: BP 159/76
--- NOTE | 2019-08-04 18:50 | STRESS TEST ---
DATE OF SERVICE: 08/04/2019 RESTING AND POST REGADENOSON TECHNETIUM-99M TETROFOSMIN SPECT CT IMAGING CLINICAL DIAGNOSES: Atrial fibrillation, dilated cardiomyopathy, shortness of breath. Baseline images were carried out after injection of 10.36 mCi of technetium-99m Tetrofosmin. This was followed by 0.4 mg regadenoson and 33 mCi of technetium-99m Tetrofosmin for stress imaging. The electrocardiogram showed sinus rhythm at baseline. It did not change significantly with the regadenoson infusion. Review of images at rest and following stress does not indicate distinct perfusion defects consistent with myocardial ischemia or infarction. Some degree of diaphragmatic attenuation is seen both at rest and following regadenoson infusion. Gated images show mild global hypokinesis. Left ventricular ejection fraction is calculated to be 49%. Left ventricular end diastolic volume 111 mL. TID is absent (1.02). CONCLUSIONS: 1. No evidence of significant myocardial ischemia or infarction on this study. 2. Moderate cardiomegaly. 3. Mild global hypokinesis with a calculated ejection fraction of 49%. Job ID: [id number] DocumentID: [id number] Dictated Date: 08/04/2019 17:49:32 Digital Asset Manager Date: 08/04/2019 18:50:02 Dictated By: MARRY PAN MD, MA, FACP, FACC,
== END ==
LOC: CARD 07:13
PROVIDERS: ATTEND Internal Medicine Cardiovascular Disease
DX: I51.7 Cardiomegaly (principal); I51.89 Other ill-defined heart diseases; I48.91 Unspecified atrial fibrillation; I48.92 Unspecified atrial flutter; I65.29 Occlusion and stenosis of unspecified carotid artery; I42.0 Dilated cardiomyopathy; I25.5 Ischemic cardiomyopathy; Z72.0 Tobacco use
CPT/HCPCS: 78452; 93017

== ENCOUNTER → 2020-12-19 | Outpatient (CLI) | payer MEDICARE, OTHER ==
[~2020-12-19] MED LIST changes: +ASPI-1238 PO; -ASPI-983 PO; +HOLD METFORMIN - RECEIVED CONTRAST 20 ML VIAL IV SCH; +IOHEXOL 350 MG/ML 100 ML (OMNIPAQUE 350) VIAL IV ONE; -LISI10TA2 PO; +LISI10TA25 PO; +NS 100 ML (IVPB) BAG IV ONE; -REGADENOSON 0.4 MG/5 ML SYR (LEXISCAN) IV ONE
--- NOTE | 2020-12-19 09:45 | Diagnostic Imaging Report ---
PROCEDURE: CT chest with contrast only. TECHNIQUE: Multiple contiguous axial images were obtained through the chest after administration of intravenous contrast. Auto Exposure Controls were utilized during the CT exam to meet ALARA standards for radiation dose reduction. INDICATION: Metastatic esophageal cancer, for followup. Compared with exam 10/31/2018. FINDINGS: Postsurgical changes of esophagectomy and gastric pull-through again noted. Emphysematous changes to the residual lungs with predominantly paraseptal emphysema and what appears to be a previous right lower lobectomy noted. No findings of acute pneumonia. No effusion or pneumothorax. No thoracic lymphadenopathy and no suspicious lung mass. No acute soft tissue or osseous chest wall pathology. The visualized upper abdomen demonstrates cholelithiasis without bile duct dilatation. Left adrenal low-density nodule unchanged from previous. No upper abdominal lymphadenopathy. IMPRESSION: 1. Stable right greater than left paraseptal emphysema right lower lobectomy with esophagectomy and pull-through. No findings however to suggest neoplastic recurrence within the chest. 2. Unchanged low-density left adrenal nodule with cholelithiasis. Dictated by: Dictated on workstation # [id number]
== END ==
LOC: RAD 09:45
PROVIDERS: ATTEND Internal Medicine
DX: J43.8 Other emphysema (principal); E27.8 Other specified disorders of adrenal gland; K80.20 Calculus of gallbladder without cholecystitis without obstruction; Z85.118 Personal history of other malignant neoplasm of bronchus and lung; Z90.2 Acquired absence of lung [part of]; Z90.49 Acquired absence of other specified parts of digestive tract; Z85.01 Personal history of malignant neoplasm of esophagus
CPT/HCPCS: 71260

== ENCOUNTER → 2021-12-20 | Outpatient (CLI) | payer MEDICARE, OTHER ==
[~2021-12-20] MED LIST changes: -CATHETER FLUSH 10 ML SYR IV PRN; -VENL150C PO; +VENL150C3 PO
--- NOTE | 2021-12-20 11:15 | Diagnostic Imaging Report ---
PROCEDURE: CT chest, abdomen, and pelvis with contrast. TECHNIQUE: Multiple contiguous axial images were obtained through the chest, abdomen, and pelvis after the administration of intravenous contrast. Auto Exposure Controls were utilized during the CT exam to meet ALARA standards for radiation dose reduction. INDICATION: Pain and abdominal mass, history of esophageal and lung cancer. Compared with a CT chest 12/19/2020, most recent abdominal pelvic imaging 12/13/2015. CHEST: Right lower lobectomy, esophagectomy and pull-through redemonstrated. There is a new small right pleural effusion nonloculated to a depth of 1.5 cm, chronic right greater than left paraseptal emphysema present. There is new anteromedial right basilar nodule or focal emphysema is pronounced. This density measures 1.8 x 1.5 cm with additional adjacent groundglass nodule 12 mm x 8 mm present. There is some subpleural scarring in the right lower lung dependently. No left lung nodule. There is no thoracic adenopathy. The atherosclerotic aorta nonaneurysmal. No acute chest wall pathology. ABDOMEN AND PELVIS: There is a large presumed stone versus aggregate sludge ball in the gallbladder lumen 3.1 cm. The gallbladder is distended, its wall mildly thickened and there is some pericholecystic stranding and mild biliary ductal dilatation. The pattern is suspicious for cholecystitis, correlate clinically. If clinical diagnosis would be unclear or doubtful, consider nuclear medicine hepatobiliary scanning to confirm or refute cystic duct patency. Some edematous thickening of the residual infradiaphragmatic stomach with omental stranding and edema as well as some fluid locules deep to the right greater than left anterior abdominal wall at the supraumbilical level. The fluid on the right measures a thickness of 1.8 cm, on the left 1.3 cm. This has no gas. The pancreas itself appeared unremarkable and inseparable from the inflammatory changes. There is some thickening of the transverse colon albeit not well distended, may be some secondary colitis. No bowel obstruction. There is no appendicitis or diverticulitis, noninflamed sigmoid diverticula noted. There is no identifiable liver mass. There is a ventral supraumbilical hernia nonobstructing comprised of a segment of small bowel, this is unchanged from prior. There is atherosclerotic infrarenal abdominal aortic aneurysm measuring 3.1 cm previously 2.4 cm in 2016, no rupture. Urinary bladder distended. The unobstructed kidneys unremarkable. The left adrenal nodule low in density 1.9 x 1.5 cm stable from 2016 presumed benign adenoma. No lymphadenopathy. IMPRESSION: CHEST: 1. Emphysema and postoperative changes new right lung nodular densities of uncertain significance in etiology but felt more likely than not nonaggressive and benign. Further evaluation however is necessary, repeat chest CT in 3 months time versus consideration for metabolic PET CT suggested as further evaluation. 2. Small right pleural effusion nonloculated, no thoracic adenopathy. ABDOMEN AND PELVIS: 1. Distended thick-walled gallbladder with intraluminal sludge ball versus stone with new mild biliary dilatation, acute cholecystitis suspected based upon the imaging findings, correlate clinically as warranted. Nuclear medicine hepatobiliary scanning may be of benefit. 2. There is an upper abdominal mesenteric and perigastric stranding edema as well as some mesenteric and retroabdominal wall developing fluid collections. Sterility could not be confirmed however contain no gas. No free air. The pancreas itself unremarkable. 3. Supraumbilical ventral nonobstructing hernia unchanged, stable chronic fat-containing left adrenal adenoma. 4. A mild fusiform aneurysmal dilatation of the unruptured infrarenal aorta 3.1 cm. This is increased in size from prior. 5. Normal appendix with noninflamed sigmoid diverticulosis. No acute pelvic pathology with unobstructed urinary tracts. 6. No liver mass or abdominal pelvic adenopathy. Dictated by: Dictated on workstation # [id number]
== END ==
LOC: RAD 12-18 09:15
PROVIDERS: ATTEND Internal Medicine
DX: J90 Pleural effusion, not elsewhere classified (principal); R60.9 Edema, unspecified; K43.9 Ventral hernia without obstruction or gangrene; D35.02 Benign neoplasm of left adrenal gland; K57.30 Diverticulosis of large intestine without perforation or abscess without bleeding; J43.9 Emphysema, unspecified
CPT/HCPCS: 71260; 74177

== ENCOUNTER → 2022-03-12 | Outpatient (CLI) | payer MEDICARE, OTHER ==
[~2022-03-12] MED LIST changes: -HOLD METFORMIN - RECEIVED CONTRAST 20 ML VIAL IV SCH; -IOHEXOL 350 MG/ML 100 ML (OMNIPAQUE 350) VIAL IV ONE; -NS 100 ML (IVPB) BAG IV ONE
== END ==
LOC: CARD 11:26
PROVIDERS: ATTEND Internal Medicine Cardiovascular Disease
DX: I35.8 Other nonrheumatic aortic valve disorders (principal)
CPT/HCPCS: 93306

== ENCOUNTER → 2022-04-03 | Outpatient (CLI) | payer MEDICARE, OTHER ==
[~2022-04-03] MED LIST changes: +REGADENOSON 0.4 MG/5 ML SYR (LEXISCAN) IV ONE
[2022-04-03] MEDS: CATHETER FLUSH 10 ML SYR IVP PRN ×2 (07:32→09:25)
[2022-04-03 09:24] VITALS: BP 180/87
--- NOTE | 2022-04-04 22:03 | STRESS TEST ---
DATE OF SERVICE: 04/03/2022 RESTING AND POST REGADENOSON TECHNETIUM-99M TETROFOSMIN SPECT CT IMAGING ORDERING PHYSICIAN: Dr. Baltazar. PRIMARY PHYSICIAN: Dr. Singh. CLINICAL DIAGNOSIS: Shortness of breath. Baseline images were carried out after injection of 10.14 mCi of technetium-99m Tetrofosmin. This was followed by 0.4 mg regadenoson and 29.2 mCi of technetium-99m Tetrofosmin for stress imaging. The electrocardiogram showed an electronic atrial pacemaker. There was right bundle branch block. No significant changes were seen with the regadenoson infusion. Review of images at rest and following stress does not indicate any distinct perfusion defects consistent with myocardial ischemia or infarction. Gated images show normal global left ventricular systolic function with normal regional wall motion. Left ventricular ejection fraction is calculated to be 50%. CONCLUSIONS: 1. No evidence of any significant myocardial ischemia or infarction on this study. 2. Normal regional wall motion. 3. Normal global left ventricular systolic function with a calculated ejection fraction of 50%. Job ID: [id number] DocumentID: [id number] Dictated Date: 04/04/2022 16:42:44 Lowerator Operator Date: 04/04/2022 22:03:08 Dictated By: MARRY BALTAZAR MD, MA, FACP, FACC,
== END ==
LOC: CARD 07:30
PROVIDERS: ATTEND Internal Medicine Cardiovascular Disease
DX: R06.02 Shortness of breath (principal)
CPT/HCPCS: 78452; 93017; A9502